=== PATIENT | female | born 1935 | race Caucasian/White ===

== ENCOUNTER 2018-06-28 13:57 | Outpatient (REF) | payer MEDICARE, OTHER, SELFPAY ==
[2018-06-28 16:08] LABS: Bilirubin Negative (Negative); Blood Negative (Negative); Clarity Clear; Glucose Negative (Negative); Ketones Negative (Negative); Leukocyte Esterase Negative (Negative); Nitrite Negative (Negative); Urobilinogen 0.2 EU/dL (Up TO 0.2)
== END 2018-06-28 14:17 ==
LOC: LBN 13:57
PROVIDERS: PCP Family Medicine; Visit Provider Family Medicine
DX: R33.9 Retention of urine, unspecified (principal)
CPT/HCPCS: 81003

== ENCOUNTER 2018-10-09 02:26 | Emergency (ER) | payer MEDICARE, OTHER, SELFPAY ==
[2018-10-09] VITALS (23 sets, daily range): BP systolic 136–190; BP diastolic 65–78; PULSE 59–66; RESP 9–20; TEMP 36.5–36.7; O2SAT 91–98
--- NOTE | 2018-10-09 02:35 | W.ED.GENAD ---
Discharge Plan Disposition Patient Disposition: HOME Condition: Stable Discharge Details Chief Complaint: Chest Pain Clinical Impression: Epigastric pain, Pancreatitis Primary Care Provider: Tiffani Salas ED Provider: Adryan Wilder Home Meds and New Rx's Prescriptions: No Action multivitamin [Daily Vitamin] 1 EACH tablet 1 ea PO DAILY RF: 0 ibuprofen 600 MG tablet 600 mg PO Q6H PRN Qty: 100 RF: 12 Discharge Instructions Instructions: Pancreatitis (ED) Additional Instructions: There was no evidence of a heart attack based on your lab work. You did have an elevation of your lipase which indicated inflammation of the pancreas Your cat scan did not show any concerning findings IF you have severe worsening of pain, high fevers or difficulty breathing return to the emergency department. follow up with your primary care provider as scheduled Medical Decision Making 83 yo female with hx of htn, hld, tricuspid regurgitation, had a stent placed in 2004 per pt after having positive stress test, comes in with complaints of chest aching that started around 1am. Denies radiation of pain, n/v, diarphoresis or pain with exertion. She states her discomfort is all but gone at this time and did not take anything for her pain. She has no calf pain, pain with deep breaths and no hypoxia or tachycardia to suggest PE. No tearing back pain and normal vascular exam so doubt dissection at this time. ECG unchanged, will send troponin. pt's labs show lipase over 900, remains stable. Given this and her pain will image chest/abd/pelvis to evaluate for gallstones and other acute pathology ct shows no acute findings on my read and vrad. She is not requiring any pain meds and declines them, is tolerating PO. I recommended admission for pancreatitis but she declined as she is tolerating PO and her pain is mild. She understands risks including worsening pancreatitis and potential to develop respiratory complications and knows she would need to come back immediately if anything worsens. SHe is willing to stay for a delta troponin to rule out nstemi. She has the capacity to make her own decisions second troponin negative and lipase decreased to the 600's. Tolerating PO and hasn't required any pain meds so feel outpatient management reasonable. She will f/u with her pcp and return if worsening Differential Diagnosis acs, chest wall pain, ptx, pna Imaging Data Radiologic Study: Attestation: I personally reviewed and interpreted this imaging study as follows: Imaging: CT Scan Radiologist's impression: no acute findings Lab Data Lab results reviewed: Yes I reviewed the patient's lab results. ECG Data Attestation: I personally reviewed and interpreted this ECG (s) as follows: Prior ECG tracings: available for review Interpretation: sinus rhythm, rate of 65, pr 192, left axis anterior fascicular block, no acute st t wavfe changes when compared to old ekg HPI General Mode of arrival: ambulatory. Date/Time Provider Initiated Documentation: 10/09/18 02:35. Limitations to Documentation: no limitations. Information obtained by: patient. History of Present Illness 83 year old F presents to the emergency department with the chief complaint of chest pain, described as mild, with intensity rated at 3. Quality is described as aching, and is localized to the chest. Patient reports no radiation. Patient started experiencing this hour(s) (2) and it has been other (improving). No relieving factors improve symptom(s), No exacerbating factors reported . Patient notes no other symptoms.. Patient did receive the following treatments prior to arrival, none Related Data Home Medications Medication Instructions Recorded Confirmed multivitamin [Daily Vitamin] 1 ea PO DAILY 07/31/14 10/09/18 ibuprofen 600 mg PO Q6H PRN #100 tab-cap 04/06/18 10/09/18 Previous Rx's Medication Instructions Recorded ibuprofen 600 mg PO Q6H PRN #100 tab-cap 04/06/18 Allergies Allergy/AdvReac Type Severity Reaction Status Date / Time hydrocortisone Allergy Severe Verified 10/09/18 02:38 metoprolol Allergy Severe Verified 10/09/18 02:38 simvastatin Allergy Intermediate VARIOUS Verified 10/09/18 02:38 REACTIONS atorvastatin Allergy Mild RASH Verified 10/09/18 02:38 doxycycline Allergy Mild SKIN RASH Verified 10/09/18 02:38 clopidogrel Allergy Unknown RASH Verified 10/09/18 02:38 Penicillins Allergy Unknown Verified 10/09/18 02:38 Sulfa (Sulfonamide Allergy Unknown RASH Verified 10/09/18 02:38 Antibiotics) lactose AdvReac Unknown Verified 10/09/18 02:38 Review of Systems Review of Systems All systems reviewed & are unremarkable except as noted in HPI and below Constitutional Denies chills, Denies fever(s) and Denies weakness ENT Denies change in voice Cardiovascular Denies dyspnea Respiratory Denies cough and Denies dyspnea Gastrointestinal Denies abdominal pain, Denies nausea and Denies vomiting Genitourinary Denies dysuria Musculoskeletal Denies joint swelling Neurologic Denies weakness [facility] Medical History Varicose veins of lower extremity (Chronic) Trigeminal neuralgia (Resolved 12/25/17) Tricuspid regurgitation (Chronic 12/21/14) Thyroid nodule (Chronic 08/06/06) Chronic sinusitis, unspecified (Chronic 10/04/15) Refusal of blood transfusions as patient is Buddhist (Acute 12/05/14) Pulmonary hypertension (Chronic 04/20/17) Primary malignant neoplasm (Chronic 08/06/07) 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) Mitral valve insufficiency (Chronic 04/20/17) Knee pain (Chronic 12/27/12) Herpes zoster (Resolved 09/10/13) Gastric motor function disorder (Chronic) Fatty liver (Chronic 12/11/14) Wedge compression fracture of first lumbar vertebra, initial encounter for closed fracture (Chronic 04/06/18) Chronic disease of respiratory system (Chronic) Chest pain (Chronic 08/06/04) Bilateral edema of lower extremity (Chronic 04/14/17) Atrophic vaginitis (Chronic 08/06/01) Abdominal pain (Resolved) Anemia (Resolved) Closed fracture of neck of femur (Resolved) Eczema (Resolved) Electrolyte imbalance (Resolved) History of stress test (Resolved) Polyp of colon, hyperplastic (Resolved) SOB (shortness of breath) (Resolved) Urinary tract infectious disease (Resolved) Surgical History History of intravascular stent placement (Resolved) History of open reduction and internal fixation (ORIF) procedure (Resolved) HIP REPAIR STRESS TEST (02/09/12) Stent placement (~2004) Social History Smoking/Tobacco Use Status: Never manuel/holiness: [employer]ov[employer] special manuel needs: Yes agree to transfusion: No (No blood products) Exam Const General: no acute distress Orientation: alert [facility] Head: normal to inspection Ears: external ears normal General nose exam: external nose normal Mouth: moist mucous membranes Eyes General: appearance normal, both eyes and all related structures Neck Neck: normal visual inspection Resp Effort & Inspection: normal respiratory effort and able to speak in complete sentences Cardio Rate: regular rate Skin General skin exam: no rashes or lesions noted Neuro General: alert and oriented x3 Extrem General: normal to inspection Psych Mental Status: mental status grossly normal
--- NOTE | 2018-10-09 02:52 | ED.GENADUL_ITS ---
Discharge Plan Disposition Patient Disposition: HOME Condition: Stable Discharge Details Chief Complaint: Chest Pain Clinical Impression: Epigastric pain, Pancreatitis Primary Care Provider: Tiffani Salas ED Provider: Adryan Wilder Home Meds and New Rx's Prescriptions: No Action multivitamin [Daily Vitamin] 1 EACH tablet 1 ea PO DAILY RF: 0 ibuprofen 600 MG tablet 600 mg PO Q6H PRN Qty: 100 RF: 12 Discharge Instructions Instructions: Pancreatitis (ED) Additional Instructions: There was no evidence of a heart attack based on your lab work. You did have an elevation of your lipase which indicated inflammation of the pancreas Your cat scan did not show any concerning findings IF you have severe worsening of pain, high fevers or difficulty breathing return to the emergency department. follow up with your primary care provider as scheduled Medical Decision Making 83 yo female with hx of htn, hld, tricuspid regurgitation, had a stent placed in 2004 per pt after having positive stress test, comes in with complaints of chest aching that started around 1am. Denies radiation of pain, n/v, diarphoresis or pain with exertion. She states her discomfort is all but gone at this time and did not take anything for her pain. She has no calf pain, pain with deep breaths and no hypoxia or tachycardia to suggest PE. No tearing back pain and normal vascular exam so doubt dissection at this time. ECG unchanged, will send troponin. pt's labs show lipase over 900, remains stable. Given this and her pain will image chest/abd/pelvis to evaluate for gallstones and other acute pathology ct shows no acute findings on my read and vrad. She is not requiring any pain meds and declines them, is tolerating PO. I recommended admission for pancreatitis but she declined as she is tolerating PO and her pain is mild. She understands risks including worsening pancreatitis and potential to develop respiratory complications and knows she would need to come back immediately if anything worsens. SHe is willing to stay for a delta troponin to rule out nstemi. She has the capacity to make her own decisions second troponin negative and lipase decreased to the 600's. Tolerating PO and hasn't required any pain meds so feel outpatient management reasonable. She will f/u with her pcp and return if worsening Differential Diagnosis acs, chest wall pain, ptx, pna Imaging Data Radiologic Study: Attestation: I personally reviewed and interpreted this imaging study as follows: Imaging: CT Scan Radiologist's impression: no acute findings Lab Data Lab results reviewed: Yes I reviewed the patient's lab results. ECG Data Attestation: I personally reviewed and interpreted this ECG (s) as follows: Prior ECG tracings: available for review Interpretation: sinus rhythm, rate of 65, pr 192, left axis anterior fascicular block, no acute st t wavfe changes when compared to old ekg HPI General Mode of arrival: ambulatory . Date/Time Provider Initiated Documentation: 10/09/18 02:35 . Limitations to Documentation: no limitations . Information obtained by: patient . History of Present Illness 83 year old F presents to the emergency department with the chief complaint of chest pain, described as mild, with intensity rated at 3. Quality is described as aching, and is localized to the chest. Patient reports no radiation. Patient started experiencing this hour(s) (2) and it has been other (improving). No relieving factors improve symptom(s), No exacerbating factors reported . Patient notes no other symptoms.. Patient did receive the following treatments prior to arrival, none Related Data Home Medications Medication Instructions Recorded Confirmed multivitamin [Daily Vitamin] 1 ea PO DAILY 07/31/14 10/09/18 ibuprofen 600 mg PO Q6H PRN #100 tab-cap 04/06/18 10/09/18 Previous Rx's Medication Instructions Recorded ibuprofen 600 mg PO Q6H PRN #100 tab-cap 04/06/18 Allergies Allergy/AdvReac Type Severity Reaction Status Date / Time hydrocortisone Allergy Severe Verified 10/09/18 02:38 metoprolol Allergy Severe Verified 10/09/18 02:38 simvastatin Allergy Intermediate VARIOUS Verified 10/09/18 02:38 REACTIONS atorvastatin Allergy Mild RASH Verified 10/09/18 02:38 doxycycline Allergy Mild SKIN RASH Verified 10/09/18 02:38 clopidogrel Allergy Unknown RASH Verified 10/09/18 02:38 Penicillins Allergy Unknown Verified 10/09/18 02:38 Sulfa (Sulfonamide Allergy Unknown RASH Verified 10/09/18 02:38 Antibiotics) lactose AdvReac Unknown Verified 10/09/18 02:38 Review of Systems Review of Systems All systems reviewed & are unremarkable except as noted in HPI and below Constitutional Denies chills, Denies fever(s) and Denies weakness ENT Denies change in voice Cardiovascular Denies dyspnea Respiratory Denies cough and Denies dyspnea Gastrointestinal Denies abdominal pain, Denies nausea and Denies vomiting Genitourinary Denies dysuria Musculoskeletal Denies joint swelling Neurologic Denies weakness [facility] Medical History Varicose veins of lower extremity (Chronic) Trigeminal neuralgia (Resolved 12/25/17) Tricuspid regurgitation (Chronic 12/21/14) Thyroid nodule (Chronic 08/06/06) Chronic sinusitis, unspecified (Chronic 10/04/15) Refusal of blood transfusions as patient is [employer] (Acute 12/05/14) Pulmonary hypertension (Chronic 04/20/17) Primary malignant neoplasm (Chronic 08/06/07) 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) Mitral valve insufficiency (Chronic 04/20/17) Knee pain (Chronic 12/27/12) Herpes zoster (Resolved 09/10/13) Gastric motor function disorder (Chronic) Fatty liver (Chronic 12/11/14) Wedge compression fracture of first lumbar vertebra, initial encounter for closed fracture (Chronic 04/06/18) Chronic disease of respiratory system (Chronic) Chest pain (Chronic 08/06/04) Bilateral edema of lower extremity (Chronic 04/14/17) Atrophic vaginitis (Chronic 08/06/01) Abdominal pain (Resolved) Anemia (Resolved) Closed fracture of neck of femur (Resolved) Eczema (Resolved) Electrolyte imbalance (Resolved) History of stress test (Resolved) Polyp of colon, hyperplastic (Resolved) SOB (shortness of breath) (Resolved) Urinary tract infectious disease (Resolved) Surgical History History of intravascular stent placement (Resolved) History of open reduction and internal fixation (ORIF) procedure (Resolved) HIP REPAIR STRESS TEST (02/09/12) Stent placement (~2004) Social History Smoking/Tobacco Use Status: Never manuel/baptism: Johovah Witness special manuel needs: Yes agree to transfusion: No (No blood products) Exam Const General: no acute distress Orientation: alert [facility] Head: normal to inspection Ears: external ears normal General nose exam: external nose normal Mouth: moist mucous membranes Eyes General: appearance normal, both eyes and all related structures Neck Neck: normal visual inspection Resp Effort & Inspection: normal respiratory effort and able to speak in complete sentences Cardio Rate: regular rate Skin General skin exam: no rashes or lesions noted Neuro General: alert and oriented x3 Extrem General: normal to inspection Psych Mental Status: mental status grossly normal
[2018-10-09 02:55] LABS: Absolute Basophil Count 0.03 k/cumm (0.0-0.2); Absolute Lymphocyte Count 3.44 k/cumm (1.2-3.4); Absolute Neutrophil Count 3.22 k/cumm (1.2-6.7); Basophils % 0.4; Eosinophils % 2.6; HCT 43.7 % (36.0-46.0); HGB 14.4 g/dL (12.0-15.5); Lymphocytes % 44.7; Mean Corpuscular Hemoglobin 28.8 pg (27.0-33.0); Mean Corpuscular Volume 87.4 fL (80-95); Mean Platelet Volume 10.3 fL (8.0-11.0); Monocytes % 10.4; Neutrophils % 41.9; Platelet Count 173 x1000/uL (130-400); RBC Distribution Width 13.2 % (11.7-14.6); White Blood Cell Count 7.69 k/cumm (4.4-10.8)
[2018-10-09] MEDS: Aspirin 81 MG CHEW 324 MG CH (03:01)
[2018-10-09 03:18] LABS: ALT 19 U/L (12-78); AST 22 U/L (15-37); Albumin 3.6 g/dL (3.4-5.0); Alkaline Phosphatase 55 U/L (46-116); Anion Gap 9.2 mmol/L (3-11); BUN 21 mg/dL (7-18); Bilirubin, Direct 0.09 mg/dL (0.00-0.20); Bilirubin, Total 0.3 mg/dL (0.2-1.0); CO2 29.8 mmol/L (21.0-32.0); CREATININE 0.98 mg/dL (0.55-1.02); Calcium 9.3 mg/dL (8.5-10.1); Chloride 103 mmol/L (98-107); Estimated GFR 54.47 (mL/min/1.73m2); Glucose 107 mg/dL (70-100); Lipase 976 U/L (73-393); Magnesium 1.8 mg/dL (1.8-2.4); NT-proBNP 200 pg/mL; Potassium 3.9 mmol/L (3.5-5.1); Sodium 142 mmol/L (136-145); Total Protein 7.7 g/dL (6.4-8.2)
[2018-10-09 03:20] LABS: Troponin I < 0.02 ng/mL (0.00-0.06)
[2018-10-09 03:22] LABS: PTT Activated 22.8 sec (21.0-31.4); Prothrombin Time 10.2 sec (9.3-11.0)
[2018-10-09] MEDS: Omnipaque 350 MG/ML 100 ML BTL IJ (03:59)
--- NOTE | 2018-10-09 04:11 | DI.CT_ITS ---
SYMPTOM/DIAGNOSIS: CHEST AND ABD PAIN PE CHEST CT: CT angiography was performed with multi slice acquisition and multi planar and 3D reconstruction. The pulmonary arteries and aorta are well opacified with IV contrast. No pulmonary emboli or aortic dissection is seen. There is mural thrombus and calcification of the descending thoracic aorta. Mitral anular calcification is also seen. There are coronary artery calcifications as well as left ventricular and bi-atrial enlargement. No pleural or pericardial effusions are seen. The lungs show mild respiratory motion. No infiltrate or adenopathy is seen. IMPRESSION: No acute abnormality. CTA OF ABDOMEN AND PELVIS: CT angiography was performed with multi slice acquisition and multi planar and 3D reconstruction. The exam is limited due to phase of contrast enhancement. Calcification and mild mural thrombus is seen in the abdominal aorta. There is some narrowing of the luminal diameter. No aneurysm is seen. There is mild calcification of the iliac arteries. No branch vessel occlusion or stenosis is seen. The liver, spleen, pancreas, adrenals, kidneys and urinary bladder are unremarkable. The uterus and ovaries are also unremarkable. There is a moderate quantity of stool. There is no bowel dilatation or inflammatory change. Degenerative changes are seen in the spine. There is a mild compression fracture of T 12 which is unchanged when compared with the CT of the lumbar spine dated 04/05/18. Facet degenerative changes are also present. IMPRESSION: Atherosclerotic changes of the abdominal aorta. No evidence of aneurysm, dissection or branch vessel occlusion.
[2018-10-09 04:19] LABS: Triglyceride 136 mg/dL (30-150)
[2018-10-09 04:28] LABS: ETHANOL BLOOD < 3.0 mg/dL (<3)
--- NOTE | 2018-10-09 04:47 | DI.VRAD_ITS ---
EXAM: CT Angiography Chest With Contrast EXAM DATE/TIME: 10/09/2018 3:30 AM CLINICAL HISTORY: 83 years old, female; Pain; Chest pain; Type not specified; Abdominal pain; Generalized; Prior surgery; Surgery date: 6+ months; Surgery type: Heart stent TECHNIQUE: Axial computed tomographic angiography images of the chest with intravenous contrast using CT angiography protocol. All CT scans at this facility use at least one of these dose optimization techniques: automated exposure control; mA and/or kV adjustment per patient size (includes targeted exams where dose is matched to clinical indication); or iterative reconstruction. Coronal and sagittal reformatted images were created and reviewed. MIP reconstructed images were created and reviewed. CONTRAST: 65 ml of [id number] administered intravenously. COMPARISON: CT CHEST WITH CONTRAST 12/11/2014 8:35 AM FINDINGS: Pulmonary arteries: Normal. No pulmonary emboli. Aorta: Normal. No aortic aneurysm. No aortic dissection. Lungs: Normal. No consolidation. No masses. Pleural space: Normal. No pneumothorax. No pleural effusion. Heart: Normal. No cardiomegaly. No pericardial effusion. Lymph nodes: Unremarkable. No enlarged lymph nodes. Bones/joints: Degenerative change of the spine. Soft tissues: Unremarkable. IMPRESSION: No acute finding. EXAM: CT Angiography Abdomen and Pelvis With Contrast EXAM DATE/TIME: 10/09/2018 3:30 AM CLINICAL HISTORY: 83 years old, female; Pain; Chest pain; Type not specified; Abdominal pain; Generalized; Prior surgery; Surgery date: 6+ months; Surgery type: Heart stent TECHNIQUE: Axial computed tomographic angiography images of the abdomen and pelvis with intravenous contrast material, including non-contrast images if performed. MIP and/or 3D reconstructed images were created and reviewed. All CT scans at this facility use at least one of these dose optimization techniques: automated exposure control; mA and/or kV adjustment per patient size (includes targeted exams where dose is matched to clinical indication); or iterative reconstruction. Coronal and sagittal reformatted images were created and reviewed. COMPARISON: CT CHEST WITH CONTRAST 12/11/2014 8:35 AM FINDINGS: VASCULATURE: Aorta: No aortic aneurysm. No aortic dissection. Celiac trunk and mesenteric arteries: No occlusion or significant stenosis. Renal arteries: No occlusion or significant stenosis. Right iliac arteries: No occlusion or significant stenosis. Right femoral/popliteal arteries: No occlusion or significant stenosis of the imaged proximal femoral artery. The popliteal artery was not imaged. Left iliac arteries: No occlusion or significant stenosis. Left femoral/popliteal arteries: No occlusion or significant stenosis of the imaged proximal femoral artery. The popliteal artery was not imaged. ABDOMEN: Liver: No mass. Gallbladder and bile ducts: Unremarkable. No calcified stones. No ductal dilation. Pancreas: Unremarkable. No mass. No ductal dilation. Spleen: Unremarkable. No splenomegaly. Adrenals: Unremarkable. No mass. Kidneys and ureters: Unremarkable. No solid mass. No hydronephrosis. Stomach and bowel: Colonic diverticula. Appendix: No evidence of appendicitis. PELVIS: Bladder: Unremarkable. No mass. Reproductive: Unremarkable as visualized. ABDOMEN and PELVIS: Intraperitoneal space: Unremarkable. No free air. No significant fluid collection. Bones/joints: Degenerative change of the spine. Soft tissues: Unremarkable. Lymph nodes: Unremarkable. No enlarged lymph nodes. IMPRESSION: No acute finding. Dictated and Authenticated by: Adryan Castle MD. Ordering:GADIEL Cornelius MD
[2018-10-09 05:12] LABS: Lipase 629 U/L (73-393)
[2018-10-09 05:20] LABS: Troponin I < 0.02 ng/mL (0.00-0.06)
== END 2018-10-09 05:45 | disposition home or self-care (01) ==
PROVIDERS: Emergency Provider Emergency Medicine; PCP Family Medicine
DX: R10.13 Epigastric pain (principal); K85.90 Acute pancreatitis without necrosis or infection, unspecified; I10 Essential (primary) hypertension; I25.10 Atherosclerotic heart disease of native coronary artery without angina pectoris; Z95.5 Presence of coronary angioplasty implant and graft
CPT/HCPCS: 36415; 71275; 74177; 80053; 80076; 83690; 93005; 99285; 80320; 83735; 83880; 84478; 84484; 85025; 85610; 85730; 93010; 99284; J3490

== ENCOUNTER 2018-11-12 00:11 | Outpatient (CLI) | payer MEDICARE, OTHER, SELFPAY ==
[2018-11-12] MEDS: Inhaler, Assist Device 1 EACH MC (08:53)
[2018-11-12] MEDS: Albuterol HFA 18 GM 200 PUFF INH IH (08:54)
--- NOTE | 2018-11-12 10:10 | MERGE_ITS ---
*[facility]* *[facility]* [address] [place] [address] Date of study: 11/12/2018 Transthoracic Echocardiography M-mode, complete 2D, complete spectral Doppler, and color Doppler *STUDY CONCLUSIONS* Summary: 1. Left ventricle: The cavity size was normal. Wall thickness was increased in a pattern of mild LVH. Systolic function was normal. The estimated ejection fraction was 60-65%. Wall motion was normal; there were no regional wall motion abnormalities. Doppler parameters are consistent with high ventricular filling pressure. 2. Right ventricle: The cavity size was dilated. Systolic function was normal. 3. Left atrium: The atrium was mildly dilated. 4. Mitral valve: Moderately calcified annulus. Mildly thickened leaflets. There was mild to moderate regurgitation. 5. Aortic valve: Trileaflet; mildly thickened, mildly calcified leaflets. Valve mobility was restricted. Transvalvular velocity was increased. There was mild stenosis. Peak velocity (S): 2m/sec. Valve area (VTI): 1.5cm^2. 6. Tricuspid valve: There was moderate-severe regurgitation. 7. Pulmonary arteries: Pulmonary systolic pressure was increased, in the range of 40mm Hg to 45mm Hg. 8. Inferior vena cava: The vessel was patent and normal in size. The respirophasic diameter changes were in the normal range (greater than or equal to 50%), consistent with normal central venous pressure. *PATIENT PRESENTATION* Height: 162.6cm ((64in) ) S/D Pressure: 127 / 77 Weight: 72.6kg ((159.7lb) ) BSA: 1.83m^2 Test start time: 10:30 AM. Test stop time: 11:45 AM. ORDERING Tiffain Salas REFERRING Tiffani Salas PERFORMING Unknown PERFORMING [facility] [employer] RT Garcia (R)(HOME), [facility] *PROCEDURE DATA* Procedure information: The patient was identified by two identifiers. This study was interpreted by [facility]. Pertinent images and digital data are archived for permanent storage and are available for subsequent review. Comparison was made to the study of 04/20/2017. Study status: Routine. Transthoracic echocardiography. M-mode, complete 2D, complete spectral Doppler, and color Doppler. A Transthoracic Echocardiogram was performed. Scanning was performed from the parasternal, apical, subcostal, and suprasternal notch acoustic windows. Images were obtained using an [id number] cardiac ultrasound machine. Image quality was adequate. Study completion: The patient tolerated the procedure well. There were no complications. History: PMH: Shortness of breath. Pulmonary HTN. I 27.2, r06.02. *CARDIAC ANATOMY* Left ventricle: The cavity size was normal. Wall thickness was increased in a pattern of mild LVH. Systolic function was normal. The estimated ejection fraction was 60-65%. Wall motion was normal; there were no regional wall motion abnormalities. Findings consistent with diastolic dysfunction. Doppler parameters are consistent with high ventricular filling pressure. Aortic valve: Trileaflet; mildly thickened, mildly calcified leaflets. Valve mobility was restricted. Doppler: Transvalvular velocity was increased. There was mild stenosis. There was trivial regurgitation. VTI ratio of LVOT to aortic valve: 0.55. Valve area (VTI): 1.5cm^2. Indexed valve area (VTI): 0.8cm^2/m^2. Peak velocity ratio of LVOT to aortic valve: 0.52. Valve area (Vmax): 1.4cm^2. Indexed valve area (Vmax): 0.8cm^2/m^2. Mean velocity ratio of LVOT to aortic valve: 0.53. Valve area (Vmean): 1.4cm^2. Indexed valve area (Vmean): 0.8cm^2/m^2. Mean gradient (S): 8.7mm Hg. Peak gradient (S): 16.6mm Hg. Aorta: Aortic root: The aortic root was normal in size. Ascending aorta: The ascending aorta was normal in size. Mitral valve: Moderately calcified annulus. Mildly thickened leaflets. Mobility was not restricted. Doppler: Transvalvular velocity was within the normal range. There was no evidence for stenosis. There was mild to moderate regurgitation. Valve area by pressure half-time: 2.9cm^2. Indexed valve area by pressure half-time: 1.6cm^2/m^2. Peak gradient (D): 4mm Hg. Left atrium: The atrium was mildly dilated. Right ventricle: The cavity size was dilated. Systolic function was normal. Pulmonic valve: The pulmonary valve appears to be grossly normal. Doppler: Transvalvular velocity was within the normal range. There was no evidence for stenosis. There was trivial regurgitation. Tricuspid valve: Structurally normal valve. Doppler: Transvalvular velocity was within the normal range. There was no evidence for stenosis. There was moderate-severe regurgitation. Pulmonary artery: The main pulmonary artery was normal-sized. Pulmonary systolic pressure was increased, in the range of 40mm Hg to 45mm Hg. Right atrium: The atrium was dilated. Pericardium: There was no pericardial effusion. Systemic veins: Inferior vena cava: Well visualized. The vessel was patent and normal in size. The respirophasic diameter changes were in the normal range (greater than or equal to 50%), consistent with normal central venous pressure. Baseline ECG: Sinus bradycardia. Measurements Left ventricle Value 04/20/2017 Reference LV ID, ED, PLAX 4.8 cm 4.9 3.5 - 6.0 LV ID, ES, PLAX 3.0 cm 3.3 2.1 - 4.0 LV PW thickness, ED, PLAX 1.0 cm 0.9 LV end-diastolic volume, 68 ml 42 1-p A2C LV ejection fraction, 1-p 66 % 64 A2C LV end-diastolic volume, 47 ml 70 1-p A4C LV ejection fraction, 1-p 64 % 61 A4C LV e', lateral 0.042 m/sec LV E/e', lateral 24 LV e', medial 0.046 m/sec LV E/e', medial 22 LV e', average 0.044 m/sec LV E/e', average 23 Ventricular septum Value 04/20/2017 Reference IVS thickness, ED, PLAX 1.0 cm 0.8 LVOT Value 04/20/2017 Reference LVOT ID, A-P 1.8 cm 1.8 LVOT area 2.6 cm^2 2.6 LVOT peak velocity, S 1.07 m/sec 1.12 LVOT mean velocity, S 0.74 m/sec LVOT VTI, S 27.1 cm 29.6 LVOT peak gradient, S 4.6 mm Hg 5 LVOT mean gradient, S 2.5 mm Hg 2.4 Stroke volume (SV), LVOT 71 ml DP Stroke index (SV/bsa), 39 ml/m^2 LVOT DP Aortic valve Value 04/20/2017 Reference Aortic valve peak 2 m/sec 1.7 velocity, S Aortic valve mean 1.39 m/sec velocity, S Aortic valve VTI, S 49.0 cm Aortic mean gradient, S 8.7 mm Hg 7 Aortic peak gradient, S 16.6 mm Hg 11.6 VTI ratio, LVOT/AV 0.55 0.65 Aortic valve area, VTI 1.5 cm^2 1.7 Velocity ratio, peak, 0.52 0.66 LVOT/AV Aortic valve area, peak 1.4 cm^2 1.7 velocity Velocity ratio, mean, 0.53 LVOT/AV Aortic valve area, mean 1.4 cm^2 velocity Aortic valve area/bsa, 0.8 cm^2/m^2 mean velocity Aorta Value 04/20/2017 Reference Aortic root ID, ED 2.4 cm 2.5 Ascending aorta ID, A-P, S 3.0 cm 2.9 Left atrium Value 04/20/2017 Reference LA ID, A-P, ES 3.6 cm LA ID/bsa, A-P 2.0 cm/m^2 <=2.2 LA area, ES, A4C (H) 27.2 cm^2 20.7 8.8 - 23.4 LA area, ES, A2C 19 cm^2 LA volume/bsa, ES, 1-p A4C 58 ml/m^2 38 LA volume, ES, 2-p 66 ml LA volume/bsa, ES, 2-p 36 ml/m^2 LA/aortic root ratio 1.5 1.47 Mitral valve Value 04/20/2017 Reference Mitral E-wave peak 1 m/sec 1.18 velocity Mitral A-wave peak 1.42 m/sec 1.4 velocity Mitral deceleration time (H) 260 ms 150 - 230 Mitral pressure half-time 75 ms 77 Mitral peak gradient, D 4 mm Hg 5.6 Mitral E/A ratio, peak 0.7 0.84 Mitral valve area, PHT, DP 2.9 cm^2 2.9 Mitral peak LV-LA 110.1 mm Hg 137.7 gradient, S Mitral maximal regurg 5.25 m/sec 5.87 velocity, PISA Mitral regurg VTI, PISA 208.1 cm Pulmonary veins Value 04/20/2017 Reference Pulmonary vein peak 0.52 m/sec 0.53 velocity, S Pulmonary vein peak 0.36 m/sec 0.25 velocity, D Pulmonary vein velocity 1.45 2.12 ratio, peak, S/D Pulmonary vein A-wave 0.36 m/sec reversal peak velocity Pulmonary vein A-wave 135 ms reversal duration Tricuspid valve Value 04/20/2017 Reference Tricuspid regurg peak 3.1 m/sec 3.2 velocity Tricuspid peak RV-RA 39.2 mm Hg 40.4 gradient Right atrium Value 04/20/2017 Reference RA area, ES, A4C (H) 20.6 cm^2 16 8.3 - 19.5 Legend: (L) and (H) mary values outside specified reference range. I have personally reviewed the images and have reviewed and edited the reported findings. Electronically signed by Helga Green 11/13/2018 09:48
--- NOTE | 2018-11-12 16:04 | PFT_ITS ---
DATE OF SERVICE: 11/12/18 REQUESTING PROVIDER: Tiffani Salas M.D. Spirometry shows no evidence of obstructive airways disease. No bronchodilator response. Lung volumes show mild restriction. Diffusion capacity mildly reduced, which is normal when corrected to alveolar volume. Airways resistance normal. IMPRESSION: Mild restrictive lung disease associated with mild diffusion defect. Clinical correlation recommended.
== END 2018-11-12 00:31 ==
PROVIDERS: PCP Family Medicine; Visit Provider Family Medicine
DX: R06.02 Shortness of breath (principal); I27.20 Pulmonary hypertension, unspecified; I08.3 Combined rheumatic disorders of mitral, aortic and tricuspid valves; I25.10 Atherosclerotic heart disease of native coronary artery without angina pectoris; Z95.5 Presence of coronary angioplasty implant and graft
CPT/HCPCS: 93306; 94060; 94150; 94726; 94729

== ENCOUNTER 2019-04-07 15:51 | Outpatient (CLI) | payer MEDICARE, OTHER, SELFPAY ==
--- NOTE | 2019-04-07 15:45 | DI.RAD_ITS ---
SYMPTOM/DIAGNOSIS: RT KNEE PAIN, M25.561 RIGHT KNEE: Three views. Comparison 03/04/11 No acute fracture or dislocation is seen. The articular surfaces are well maintained. There is a small enthesophyte seen in the superior aspect of the patella. Vascular calcifications are seen in the soft tissues. IMPRESSION: No acute abnormality.
== END 2019-04-07 16:11 ==
PROVIDERS: PCP Family Medicine; Visit Provider Family Medicine
DX: M25.561 Pain in right knee (principal)
CPT/HCPCS: 73562

== ENCOUNTER → 2019-05-25 09:46 | Outpatient (BNVA) | payer MEDICARE, OTHER, SELFPAY | PROVIDERS: PCP Family Medicine; Referring Provider Family Medicine; Visit Provider Student in an Organized Health Care Education/Training Program | DX: I25.10 Atherosclerotic heart disease of native coronary artery without angina pectoris (principal); Z95.5 Presence of coronary angioplasty implant and graft; I38 Endocarditis, valve unspecified; I50.30 Unspecified diastolic (congestive) heart failure | CPT/HCPCS: 99214 ==

== ENCOUNTER 2020-03-09 21:58 | Emergency (ER) | payer MEDICARE, OTHER, SELFPAY ==
[2020-03-09 22:02] VITALS: BP 155/99; PULSE 61; RESP 24; TEMP 36.3; O2SAT 96
[2020-03-09] MEDS: Acetaminophen 500 MG TAB 1000 MG PO (22:11)
--- NOTE | 2020-03-09 22:15 | ED.GENADUL_ITS ---
Discharge Plan Disposition Patient Disposition: HOME Condition: Stable Discharge Details Chief Complaint: Orthopedic Clinical Impression: Fall, Blunt head trauma, Contusion of forearm, right, Fracture of triquetral bone of right wrist, Contusion of hand, right Primary Care Provider: Tiffani Salas ED Provider: Adryan Wilder Home Meds and New Rx's Prescriptions: Continued coenzyme Q10 100 mg capsule 200 mg PO DAILY RF: 0 Peak Chelation & Resveratrol 1 tab PO TID RF: 0 Telo Cell Anti Aging Science 1 tab PO DAILY RF: 0 multivitamin [Daily Vitamin] 1 EACH tablet 1 ea PO DAILY RF: 0 ibuprofen 600 MG tablet 600 mg PO Q6H PRN Qty: 100 RF: 12 Discharge Instructions Instructions: Wrist Fracture in Adults (ED) Additional Instructions: you have a small broken bone in the wrist call orthopedics Thursday for an appointment return to the emergency department for severe worsening pain or numbness Referrals: Vlad Burgos MD [ [facility] STAFF PHYSICIAN] - Medical Decision Making 84 yo female who states she was trying to get out of the rain and slipped from standing height and landed on her right wrist and hit her head, no loc or vomit. Has 1cm supercicial abrasion to the superior head, no neck tenderness. HAs pain in right wrist with swelling, no tenderness on fingers, mild mid forearm pain, no pain in elbow or shoulders and no chest pain, abd pain, leg pain. Denies any preceding symptoms to suggest presyncope/sncope states purely mechanical due to it being slipper from rain. Given her age and head trauma will image head and c spine and also xray right forearm, wrist and hand. head, forearm negative, hand and wrist show minimaly displaced triquetrum fracture, still no deficits on sensation and pulses and movement of fingers. Placed in wrist splint and will have her f/u with orthopedics. She declined pain meds for home and just wants to take ibuprofen and tylenol. She also declined discussing at home services with care managers, states she feels comfortable going home and can manage on her own. She is caox4 and has capacity to make her own decisions Differential Diagnosis Differential Diagnosis: fracture, dislocation, tbi Imaging Data Radiologic Study: Attestation: I personally reviewed and interpreted this imaging study as follows: Imaging: X-Ray Radiologist's impression: Exam: XR Right Forearm Exam date and time: 03/09/2020 10:35 PM Age: 84 years old Clinical indication: Injury or trauma; Fall; Initial encounter; Blunt trauma (contusions or hematomas; Arm, lower; Right; Injury date: 03/09/20 TECHNIQUE: Imaging protocol: XR Right forearm. Views: 2 views. COMPARISON: No relevant prior studies available. FINDINGS: Bones/joints: Osteopenia. Proximal and distal radial ulnar alignment is normal. Elbow joint alignment is normal. No forearm fractures. No blastic or lytic lesions. No elbow joint effusion. No periostitis or osteolysis. Soft tissues: Mild dorsal soft tissue swelling at the wrist. No radiopaque foreign bodies are identified. Other findings: Carpal relationships are normal. No articular erosions. IMPRESSION: 1. No forearm fractures are identified. 2. Osteopenia. 3. Mild soft tissue swelling at the wrist. Radiologic Study #2: Attestation: I personally reviewed and interpreted this imaging study as follows: Imaging: X-Ray Radiologist's impression: PROCEDURE INFORMATION: Exam: XR Right Hand Exam date and time: 03/09/2020 10:31 PM Age: 84 years old Clinical indication: Injury or trauma; Fall; Initial encounter; Blunt trauma (contusions or hematomas; Hand; Right; Injury date: 03/09/20 TECHNIQUE: Imaging protocol: XR Right hand. Views: 3 or more views. COMPARISON: CR RIGHT HAND COMPLETE 03/03/2017 3:49 PM FINDINGS: Bones/joints: Osteopenia. Acute fracture of the dorsal margin of the triquetrum noted demonstrating about 1 mm displacement of the dorsal cortical fragment. No other fractures. Distal radioulnar alignment is normal. No blastic or lytic lesions. No periostitis or osteolysis. There is evidence of moderate erosive osteoarthritis involving the distal phalangeal joints of the fingers and to a lesser degree the PIP joints. Soft tissues: Mild-moderate dorsal soft tissue swelling at the wrist. No radi opaque foreign bodies. Other findings: Carpal relationships are normal. IMPRESSION: 1. Acute minimally displaced fracture of the dorsal margin of the triquetrum. 2. Osteopenia. 3. Evidence of chronic erosive osteoarthritis. Radiologic Study #3: Attestation: I personally reviewed and interpreted this imaging study as follows: Imaging: X-Ray Radiologist's impression: PROCEDURE INFORMATION: Exam: XR Right Wrist Exam date and time: 03/09/2020 10:30 PM Age: 84 years old Clinical indication: Injury or trauma; Fall; Initial encounter; Blunt trauma (contusions or hematomas; Wrist; Right; Injury date: 03/09/20 TECHNIQUE: Imaging protocol: XR Right wrist. Views: 3 or more views. COMPARISON: CR RIGHT HAND COMPLETE 03/03/2017 3:49 PM FINDINGS: Bones/joints: Cortical discontinuity in the dorsal margin of the triquetrum on the lateral view which is new from 03/03/2017 suspicious for nondisplaced dorsal triquetral fracture. Distal radioulnar alignment is normal. No blastic or lytic lesions. No periostitis or osteolysis. Osteopenia. Soft tissues: No gross erosive changes. Dorsal soft tissue swelling at the wrist. No radiopaque foreign bodies. Other findings: Carpal relationships are normal. IMPRESSION: 1. Suspected nondisplaced fracture of the dorsal margin of the triquetrum. 2. Osteopenia. 3. Dorsal soft tissue swelling. Radiologic Study #4: Attestation: I personally reviewed and interpreted this imaging study as follows: Imaging: CT Scan Radiologist's impression: PROCEDURE INFORMATION: Exam: CT Head Without Contrast Exam date and time: 03/09/2020 10:06 PM Age: 84 years old Clinical indication: Injury or trauma; Fall; Initial encounter; Blunt trauma (contusions or hematomas); Consciousness not specified; Injury date: 03/09/20 TECHNIQUE: Imaging protocol: Computed tomography of the head without contrast. Radiation optimization: All CT scans at this facility use at least one of these dose optimization techniques: automated exposure control; mA and/or kV adjustment per patient size (includes targeted exams where dose is matched to clinical indication); or iterative reconstruction. COMPARISON: CT HEAD WITHOUT CONTRAST 12/25/2017 8:58 AM FINDINGS: Brain: Minor cerebral atrophy. No intracranial hemorrhage. No large territory acute CVA. No cerebral edema. Brainstem and cerebellum are unremarkable. Ventricles: Normal. No ventriculomegaly. Bones/joints: Unremarkable. No acute fracture. Sinuses: Visualized sinuses are unremarkable. No fluid levels. Mastoid air cells: Visualized mastoid air cells are well aerated. Soft tissues: Right forehead scalp laceration. No foreign body. IMPRESSION: 1. Forehead scalp laceration. No foreign body. 2. No skull fracture. 3. No intracranial hemorrhage PROCEDURE INFORMATION: Exam: CT Cervical Spine Without Contrast Exam date and time: 03/09/2020 10:06 PM Age: 84 years old Clinical indication: Injury or trauma; Fall; Initial encounter; Blunt trauma (contusions or hematomas); Consciousness not specified; Injury date: 03/09/20 TECHNIQUE: Imaging protocol: Computed tomography images of the cervical spine without contrast. Radiation optimization: All CT scans at this facility use at least one of these dose optimization techniques: automated exposure control; mA and/or kV adjustment per patient size (includes targeted exams where dose is matched to clinical indication); or iterative reconstruction. COMPARISON: CT HEAD WITHOUT CONTRAST 12/25/2017 8:58 AM FINDINGS: Vertebrae: No acute fracture. Normal alignment. Severe degenerative disc disease at C5-C6. Moderate degenerative disc disease at C3-C4. Multilevel degenerative facet and uncovertebral joint disease of moderate to severe nature. Discs/Spinal canal/Neural foramina: No significant disc protrusion. No severe spinal canal stenosis. No significant neural foraminal narrowing. Soft tissues: Unremarkable. Lungs: Lung apices are normal. Vasculature: Bilateral carotid artery atherosclerotic calcification. IMPRESSION: 1. Degenerative cervical spine changes. 2. No fracture or dislocation HPI General Mode of arrival: ambulatory . Date/Time Provider Initiated Documentation: 03/09/20 22:03 . Limitations to Documentation: no limitations . Information obtained by: patient . History of Present Illness 84 year old F presents to the emergency department with the chief complaint of right wrist pain, described as moderate, Quality is described as aching, and it has been constant. Patient did receive the following treatments prior to arrival, none Related Data Home Medications Medication Instructions Recorded Confirmed multivitamin [Daily Vitamin] 1 ea PO DAILY 07/31/14 03/09/20 ibuprofen 600 mg PO Q6H PRN #100 tab-cap 04/06/18 03/09/20 coenzyme Q10 100 mg capsule 200 mg PO DAILY cap 11/02/18 03/09/20 Peak Chelation & Resveratrol 1 tab PO TID 05/25/19 03/09/20 Telo Cell Anti Aging Science 1 tab PO DAILY 05/25/19 03/09/20 Previous Rx's Medication Instructions Recorded ibuprofen 600 mg PO Q6H PRN #100 tab-cap 04/06/18 Allergies Allergy/AdvReac Type Severity Reaction Status Date / Time hydrocortisone Allergy Severe Verified 03/09/20 22:06 metoprolol Allergy Severe Verified 03/09/20 22:06 simvastatin Allergy Intermediate VARIOUS Verified 03/09/20 22:06 REACTIONS atorvastatin Allergy Mild RASH Verified 03/09/20 22:06 doxycycline Allergy Mild SKIN RASH Verified 03/09/20 22:06 clopidogrel Allergy Unknown RASH Verified 03/09/20 22:06 Penicillins Allergy Unknown Verified 03/09/20 22:06 Sulfa (Sulfonamide Allergy Unknown RASH Verified 03/09/20 22:06 Antibiotics) lactose AdvReac Unknown Verified 03/09/20 22:06 levofloxacin AdvReac aching Verified 03/09/20 22:06 General Stated Complaint: Orthopedic KAE: 3 Review of Systems All systems reviewed & are unremarkable except as noted in HPI and below Constitutional Constitutional: Denies chills, Denies fever(s) and Denies weakness Cardiovascular Cardiovascular: Denies chest pain and Denies dyspnea Respiratory Respiratory: Denies cough and Denies dyspnea Gastrointestinal Gastrointestinal: Denies abdominal pain, Denies nausea and Denies vomiting Musculoskeletal Musculoskeletal: Denies joint swelling Neurologic Neurologic: Denies weakness [facility] Surgical History (Updated 04/07/19 @ 14:57 by Tiffani Salas MD, DC) HIP REPAIR RIGHT HIP;ORIF History of intravascular stent placement (Resolved) 09/07/04 LAD History of intravascular stent placement (Inactive) History of open reduction and internal fixation (ORIF) procedure (Resolved) History of open reduction and internal fixation (ORIF) procedure (Inactive) Stent placement (~2004) LAD STRESS TEST (02/09/12) NV Social History Smoking/Tobacco Use Status: Never Second Hand Exposure: Yes Alcohol Intake: current Alcohol Intake frequency: holidays/special occasions only Drug use: Never Substance use type: does not use Household members: none Pets and animals: No Sexually active: No Do you think of yourself as: straight/heterosexual Current gender identity: female What is your relationship status?: How often do you talk on the phone with friends or family?: three or more times per week How often do you get together with friends or relatives?: three or more times per week How often do you attend yazidi or moravian services?: 4 or more times per year Do you belong to any clubs or organized social groups?: yes Panel score (0-1 are the most socially isolated patients): 3 What type of physical activity do you participate in: walking Duration: < 15 minutes/day Frequency: daily Elizabeth/Faith: Rastafarian Special elizabeth needs: Yes Agree to transfusion: No (No blood products) Seatbelt use: always Helmet use: No Drive intox or ride w/intox refrigerated 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 Do you feel safe at home: Yes Do you feel safe in your relationship?: Yes Exam Const General: no acute distress Orientation: alert HENMT Head: no palpable skull fracture Ears: external ears normal General nose exam: external nose normal Mouth: moist mucous membranes Eyes General: appearance normal, both eyes and all related structures Neck Neck: normal visual inspection Resp Effort & Inspection: normal respiratory effort and able to speak in complete sentences Cardio Rate: regular rate Skin General skin exam: no rashes or lesions noted Neuro General: patient alert and patient oriented x3 Extrem General: capillary refill normal Psych Mental Status: mental status grossly normal Course Vital Signs Vital signs: Vital Signs Temperature 36.3 C L 03/09/20 22:02 Pulse 61 03/09/20 22:02 Respiratory Rate 24 03/09/20 22:02 Blood Pressure 155/99 H 03/09/20 22:02 Pulse Oximetry 96 03/09/20 22:02 Temperature 36.3 C L 03/09/20 22:02 Temperature Source Skin 03/09/20 22:02 Pulse 61 03/09/20 22:02 Respiratory Rate 24 03/09/20 22:02 Blood Pressure 155/99 H 03/09/20 22:02 Blood Pressure Position Supine 03/09/20 22:02 Pulse Oximetry 96 03/09/20 22:02 Oxygen Delivery Method Room Air 03/09/20 22:02 Oxygen Flow Rate 0 03/09/20 22:02 Pain Level 9 03/09/20 22:11
--- NOTE | 2020-03-09 22:22 | DI.CT_ITS ---
EXAM: CT HEAD CERVICAL SPINE WO CLINICAL HISTORY: fall, pain. TECHNIQUE: Imaging Protocol: Axial computed tomography images with coronal and sagittal reformatted images were created and reviewed COMPARISON: CT HEAD WITHOUT CONTRAST from 12/25/2017 FINDINGS: CT Head: Ventricles and Extra axial spaces: Normal in size and morphology for the patient's age. Hemorrhage: None. Cerebral parenchyma: There are areas of decreased attenuation in the white matter consistent with sma ll vessel ischemic disease. Midline shift: None. Brainstem/Cerebellum: Normal. Calvarium: Normal. Visualized Paranasal sinuses/Mastoids: Clear. Soft Tissues: There is a right frontal scalp hematoma. CT Cervical Spine: Bones: No acute fracture or subluxation. Moderately severe degenerative changes are present throughou t the cervical spine. Soft Tissues: Unremarkable. Atherosclerosis. Lung Apices: Clear. IMPRESSION: 1. No acute intracranial process. 2. There is a right frontal scalp hematoma. 3. No acute fracture or subluxation in the cervical spine. RADIATION DOSE DELIVERED: Total DLP DATA REPOSITORY: All CT scans at this facility are submitted to the National Radiology Data Registry (NRDR) Dose Index Registry (DIR) with the [employer] (ACR). RADIATION OPTIMIZATION: All CT scans at this facility use at least one of these dose optimization te chniques: automated exposure control; mA and/or kV adjustment per patient size (includes targeted exa ms where dose is matched to clinical indication); or iterative reconstruction.
--- NOTE | 2020-03-09 22:44 | DI.RAD_ITS ---
EXAM: XR WRIST RT COMPLETE and XR hand RT complete and XR forearm RT CLINICAL HISTORY: pain s/p fall. TECHNIQUE: 2D digital imaging was performed. COMPARISON: CR RIGHT HAND COMPLETE from 03/03/2017 FINDINGS: BONES: There is a minimally displaced fracture involving the triquetrum best appreciated on the later al views of the wrist and hand. No other fracture or dislocation is identified. The elbow is normal ly aligned. There is osteopenia. 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 SOFT TISSUE: Soft tissue swelling of the wrist is noted. IMPRESSION: Minimally displaced triquetral fracture. DATA REPOSITORY: RADIATION DOSE DELIVERED:
--- NOTE | 2020-03-09 22:50 | DI.VRAD_ITS ---
PROCEDURE INFORMATION: Exam: CT Head Without Contrast Exam date and time: 03/09/2020 10:06 PM Age: 84 years old Clinical indication: Injury or trauma; Fall; Initial encounter; Blunt trauma (contusions or hematomas); Consciousness not specified; Injury date: 03/09/20 TECHNIQUE: Imaging protocol: Computed tomography of the head without contrast. Radiation optimization: All CT scans at this facility use at least one of these dose optimization techniques: automated exposure control; mA and/or kV adjustment per patient size (includes targeted exams where dose is matched to clinical indication); or iterative reconstruction. COMPARISON: CT HEAD WITHOUT CONTRAST 12/25/2017 8:58 AM FINDINGS: Brain: Minor cerebral atrophy. No intracranial hemorrhage. No large territory acute CVA. No cerebral edema. Brainstem and cerebellum are unremarkable. Ventricles: Normal. No ventriculomegaly. Bones/joints: Unremarkable. No acute fracture. Sinuses: Visualized sinuses are unremarkable. No fluid levels. Mastoid air cells: Visualized mastoid air cells are well aerated. Soft tissues: Right forehead scalp laceration. No foreign body. IMPRESSION: 1. Forehead scalp laceration. No foreign body. 2. No skull fracture. 3. No intracranial hemorrhage. PROCEDURE INFORMATION: Exam: CT Cervical Spine Without Contrast Exam date and time: 03/09/2020 10:06 PM Age: 84 years old Clinical indication: Injury or trauma; Fall; Initial encounter; Blunt trauma (contusions or hematomas); Consciousness not specified; Injury date: 03/09/20 TECHNIQUE: Imaging protocol: Computed tomography images of the cervical spine without contrast. Radiation optimization: All CT scans at this facility use at least one of these dose optimization techniques: automated exposure control; mA and/or kV adjustment per patient size (includes targeted exams where dose is matched to clinical indication); or iterative reconstruction. COMPARISON: CT HEAD WITHOUT CONTRAST 12/25/2017 8:58 AM FINDINGS: Vertebrae: No acute fracture. Normal alignment. Severe degenerative disc disease at C5-C6. Moderate degenerative disc disease at C3-C4. Multilevel degenerative facet and uncovertebral joint disease of moderate to severe nature. Discs/Spinal canal/Neural foramina: No significant disc protrusion. No severe spinal canal stenosis. No significant neural foraminal narrowing. Soft tissues: Unremarkable. Lungs: Lung apices are normal. Vasculature: Bilateral carotid artery atherosclerotic calcification. IMPRESSION: 1. Degenerative cervical spine changes. 2. No fracture or dislocation. Dictated and Authenticated by: Otoniel Pratt MD. Ordering:GADIEL Cornelius MD
--- NOTE | 2020-03-09 22:50 | DI.VRAD_ITS ---
PROCEDURE INFORMATION: Exam: XR Right Wrist Exam date and time: 03/09/2020 10:30 PM Age: 84 years old Clinical indication: Injury or trauma; Fall; Initial encounter; Blunt trauma (contusions or hematomas; Wrist; Right; Injury date: 03/09/20 TECHNIQUE: Imaging protocol: XR Right wrist. Views: 3 or more views. COMPARISON: CR RIGHT HAND COMPLETE 03/03/2017 3:49 PM FINDINGS: Bones/joints: Cortical discontinuity in the dorsal margin of the triquetrum on the lateral view which is new from 03/03/2017 suspicious for nondisplaced dorsal triquetral fracture. Distal radioulnar alignment is normal. No blastic or lytic lesions. No periostitis or osteolysis. Osteopenia. Soft tissues: No gross erosive changes. Dorsal soft tissue swelling at the wrist. No radiopaque foreign bodies. Other findings: Carpal relationships are normal. IMPRESSION: 1. Suspected nondisplaced fracture of the dorsal margin of the triquetrum. 2. Osteopenia. 3. Dorsal soft tissue swelling. Dictated and Authenticated by: Ankit Lunsford MD. Ordering:GADIEL Cornelius MD
--- NOTE | 2020-03-09 22:51 | DI.VRAD_ITS ---
PROCEDURE INFORMATION: Exam: XR Right Forearm Exam date and time: 03/09/2020 10:35 PM Age: 84 years old Clinical indication: Injury or trauma; Fall; Initial encounter; Blunt trauma (contusions or hematomas; Arm, lower; Right; Injury date: 03/09/20 TECHNIQUE: Imaging protocol: XR Right forearm. Views: 2 views. COMPARISON: No relevant prior studies available. FINDINGS: Bones/joints: Osteopenia. Proximal and distal radial ulnar alignment is normal. Elbow joint alignment is normal. No forearm fractures. No blastic or lytic lesions. No elbow joint effusion. No periostitis or osteolysis. Soft tissues: Mild dorsal soft tissue swelling at the wrist. No radiopaque foreign bodies are identified. Other findings: Carpal relationships are normal. No articular erosions. IMPRESSION: 1. No forearm fractures are identified. 2. Osteopenia. 3. Mild soft tissue swelling at the wrist. Dictated and Authenticated by: Ankit Lunsford MD. Ordering:GADIEL Cornelius MD
--- NOTE | 2020-03-09 22:53 | DI.VRAD_ITS ---
PROCEDURE INFORMATION: Exam: XR Right Hand Exam date and time: 03/09/2020 10:31 PM Age: 84 years old Clinical indication: Injury or trauma; Fall; Initial encounter; Blunt trauma (contusions or hematomas; Hand; Right; Injury date: 03/09/20 TECHNIQUE: Imaging protocol: XR Right hand. Views: 3 or more views. COMPARISON: CR RIGHT HAND COMPLETE 03/03/2017 3:49 PM FINDINGS: Bones/joints: Osteopenia. Acute fracture of the dorsal margin of the triquetrum noted demonstrating about 1 mm displacement of the dorsal cortical fragment. No other fractures. Distal radioulnar alignment is normal. No blastic or lytic lesions. No periostitis or osteolysis. There is evidence of moderate erosive osteoarthritis involving the distal phalangeal joints of the fingers and to a lesser degree the PIP joints. Soft tissues: Mild-moderate dorsal soft tissue swelling at the wrist. No radiopaque foreign bodies. Other findings: Carpal relationships are normal. IMPRESSION: 1. Acute minimally displaced fracture of the dorsal margin of the triquetrum. 2. Osteopenia. 3. Evidence of chronic erosive osteoarthritis. Dictated and Authenticated by: Ankit Lunsford MD. Ordering:GADIEL Cornelius MD
[2020-03-09] MEDS: Ibuprofen 600 MG TAB PO (23:10)
[2020-03-09 23:12] VITALS: BP 155/99; PULSE 61; RESP 24; TEMP 36.3; O2SAT 96
== END 2020-03-09 23:25 | disposition home or self-care (01) ==
PROVIDERS: Emergency Provider Emergency Medicine; PCP Family Medicine
DX: S09.90XA Unspecified injury of head, initial encounter (principal); S00.01XA Abrasion of scalp, initial encounter; S62.111A Displaced fracture of triquetrum [cuneiform] bone, right wrist, initial encounter for closed fracture; S50.11XA Contusion of right forearm, initial encounter; S60.111A Contusion of right thumb with damage to nail, initial encounter; W01.10XA Fall on same level from slipping, tripping and stumbling with subsequent striking against unspecified object, initial encounter
CPT/HCPCS: 25630; 99284; 70450; 72125; 73090; 73110; 73130; 99283; L3908

== ENCOUNTER 2020-04-09 01:17 | Outpatient (CLI) | payer MEDICARE, OTHER, SELFPAY ==
--- NOTE | 2020-04-09 07:30 | DI.US_ITS ---
APPROVED REPORT EXAM: Comprehensive 2D, Doppler, and color-flow Echocardiogram Patient Location: Out-Patient Laborer Pipelines: Valerie Schofield RDCS (AE) Indications: Pulmonary HTN, Edema, Non Rheumatic Mitral Valvle Other Information Study Quality: Good Conclusion Left Ventricle : The left ventricle is normal size. The left ventricular systolic function is normal. The left ventricular ejection fraction is within the normal range. There is normal left ventricular wall thickness. There is normal LV segmental wall motion. Diastolic function is indeterminate. LVEF i s 60-65%. Right Ventricle : The right ventricle is normal size. The right ventricular systolic function is norm al. The RVSP is 31 mmHg. Atria : The left atrium size is normal. The right atrium size is normal. Aortic Valve : Moderate aortic valve sclerosis. Aortic valve is trileaflet. There is no aortic valvul ar stenosis. Trace aortic regurgitation. Mitral Valve : Severe mitral annular calcification. No evidence of mitral valve stenosis. Moderate mi tral regurgitation. Tricuspid Valve : The tricuspid valve is normal in structure. There is no tricuspid valve stenosis. M oderate tricuspid regurgitation. Compared to study from 11/12/2018, there is no significant change. Wall motion Left Ventricle The left ventricle is normal size. The left ventricular systolic function is normal. The left ventric ular ejection fraction is within the normal range. There is normal left ventricular wall thickness. T here is normal LV segmental wall motion. Diastolic function is indeterminate. There is no ventricular septal defect visualized. LVEF is 60-65%. Right Ventricle The right ventricle is normal size. The right ventricular systolic function is normal. The RVSP is 31 mmHg. Atria The left atrium size is normal. The right atrium size is normal. The interatrial septum is intact wit h no evidence for an atrial septal defect. Aortic Valve Moderate aortic valve sclerosis. Aortic valve is trileaflet. There is no aortic valvular stenosis. Tr timo aortic regurgitation. Mitral Valve Severe mitral annular calcification. No evidence of mitral valve stenosis. Moderate mitral regurgitat ion. Tricuspid Valve The tricuspid valve is normal in structure. There is no tricuspid valve stenosis. Moderate tricuspid regurgitation. Pulmonic Valve The pulmonary valve is normal in structure. There is no pulmonic valvular stenosis. Trace pulmonic re gurgitation. Great Vessels The aortic root is normal in size. The ascending aorta is normal in size. Aortic arch is normal in ca liber. IVC is normal in size and collapses >50% with inspiration. Pericardium There is no pericardial effusion. 2D Dimensions IVSD d PLAX 0.83 cm F: 0.6-1.0 LV Vol A2C d MOD 59.4 mL LVPW d PLAX 0.82 cm F: 0.6 - 1.0 LV Vol A4C d MOD 61.9 mL LVID d PLAX 3.75 cm F: 3.8 - 5.2 LA vol/ BSA A2C s A-L 32.9 mL/m2 LVDs 2.25 cm F: 2.2 - 3.5 LA vol/ BSA A4C s A-L 29.4 mL/m2 Ao Root d 2.30 cm F: 2.7 - 3.3 LA Vol/ BSA Biplane s A-L 32.1 mL/m2 RA Area A4C 14.62 cm2 LA Area A4C s MOD 17.13 cm2 RA Vol/ BSA A4C s A-L 23.7 mL/m2 LA Area A2C s MOD 18.72 cm2 Ao Asc Diam d 2.68 cm F: 2.3 - 3.1 LV EF A4C MOD 65.2 % LV EF Teichholz 70.9 % LV EF A2C MOD 61.3 % LVEF (Pringle's) 61.41 % F: 54 - 74 LV EF Biplane MOD 61.4 % LV Volume 50.02 mL F: 46 - 106 SV 38.52 mL LV Volume Index 29.77 mL/m2 F: 29 - 61 SV Index 22.92 mL/m2 LV Vol Biplane MOD 62.7 mL FS 39.50 % M-Mode TAPSE 2.20 cm (M/F) >1.7 LV Diastology MV E' medial 0.050 (>0.07 m/s) E/A Ratio 0.5 LV E/e MED 14.55 (<14) MV E Vmax 0.73 (0.4-1.3 m/s) MV E' lateral 0.050 (>0.1 m/s) MV A Vmax 1.35 (0.4-1.3 m/s) LV E/e LAT 14.55 (<14) MV E/A Ratio 0.53 MV E/E' medial 14.56 MV E/E' lateral 14.56 Aortic Valve LVOT Area 2.66 cm2 AoV Area Vmax 1.83 cm2 LVOT Vmax 1.30 m/s AoV Area/ BSA (Vmax) 1.09 cm2/m2 LVOT Mean Heber. 0.80 m/s RENETTA Mean Heber. 1.66 cm2 LVOT Peak Grad 6.8 mmHg RENETTA Mean Heber. Index 0.99 cm2/m2 LVOT Mean Grad 3.2 mmHg LVOT VTI 0.285 m LVOT Diam s 1.80 cm AoV Vmax 1.88 m/s Velocity Ratio 0.69 AoV Mean Heber. 1.29 m/s AoV Peak Grad 14.2 mmHg LVOT SV 75.67 mL AoV Mean Grad 7.5 mmHg AoV VTI 0.382 m AoV Area VTI 1.98 cm2 AoV Area/ BSA (VTI) 1.18 cm/m2 Mitral Valve MV DT 249 (160-240 msec) MR Vmax 5.06 m/s MV PHT 72 msec MR VTI 1.846 m MV Area PHT 3.05 cm2 MR Peak Grad 102.4 mmHg MV VTI 0.406 m MR Mean Grad 74.4 mmHg MV Area VTI 1.86 (4.0-6.0 cm2) MR PISA Radius 0.53 cm MR EROA 0.12 cm2 MR Aliasing Velocity 0.35 m/s MR PISA 1.78 cm2 Pulmonary Valve PV Vmax 0.86 (0.5-1.5 m/s) RVOT Peak Gr. 2.19 mmHg PV Peak Grad 2.9 mmHg RVOT Mean Gr. 1.10 mmHg PV Mean Grad 1.3 mmHg RVOT VTI 0.145 m PV VTI 0.163 m RVOT Vmax 0.74 m/s Tricuspid Valve TR Peak Grad 27.7 mmHg TR Vmax 2.64 m/s RA Pressure 3.00 mmHg RVSP (TR) 30.8 mmHg
== END 2020-04-09 01:37 ==
PROVIDERS: PCP Family Medicine; Visit Provider Family Medicine
DX: I27.20 Pulmonary hypertension, unspecified (principal); I08.1 Rheumatic disorders of both mitral and tricuspid valves; R60.0 Localized edema
CPT/HCPCS: 93306

== ENCOUNTER 2020-04-29 08:56 | Emergency (ER) | payer MEDICARE, OTHER, SELFPAY ==
[2020-04-29 09:02] VITALS: BP 187/79; PULSE 73; RESP 16; TEMP 36.3; O2SAT 96
--- NOTE | 2020-04-29 09:26 | ED.GENADUL_ITS ---
Discharge Plan Disposition Patient Disposition: HOME Condition: Stable Discharge Details Chief Complaint: Nk/Back Pain Clinical Impression: Fall (on) (from) other stairs and steps, initial encounter, Acute lumbosacral myofascial strain Primary Care Provider: Tiffani Salas ED Provider: Chika Gallardo Home Meds and New Rx's Prescriptions: No Action coenzyme Q10 100 mg capsule 200 mg PO DAILY RF: 0 PEAK thyroid support capsule PO RF: 0 cholecalciferol (vitamin D3) 125 mcg (5,000 unit) capsule 125 mcg PO DAILY RF: 0 biotin 10,000 mcg capsule PO DAILY RF: 0 diphenhydramine-acetaminophen [Tylenol PM Extra Strength] 25-500 mg tablet 1 tab PO QHS PRNRF: 0 Peak Chelation & Resveratrol 1 tab PO TID RF: 0 Telo Cell Anti Aging Science 1 tab PO DAILY RF: 0 multivitamin [Daily Vitamin] 1 EACH tablet 1 ea PO DAILY RF: 0 ibuprofen 600 MG tablet 600 mg PO Q6H PRN Qty: 100 RF: 12 Discharge Instructions Instructions: Muscle Strain (ED), Fall Prevention (ED) Additional Instructions: Follow up with primary care provider in 3-5 days. Return to ED sooner if any worsening or concerns. Increase oral fluids. Please take Tylenol or Ibuprofen with food every 4-6 hours as needed for pain and swelling. Alternate ice and heat. May take muscle relaxer as needed for muscle spasm. Return for any loss of bowel or bladder control, radiation of pain down your legs or any concerns. Referrals: Tiffani Salas MD, [place] [Primary Care Provider] - Discharge Data Discharge Date/Time-TO BE ENTERED AT DEPARTURE: 04/29/20 12:12 Medical Decision Making 85-year-old female presents to the ER with chief complaint of lower back pain and pelvis pain after a fall onto her buttocks 2 days ago. Patient states that she had a mechanical fall and tripped walking backwards into a cement wall landing on her buttocks. She reports bilateral paraspinous tenderness to her lumbar back, and bilateral hip pain. He denies any saddle anesthesia loss of bowel or bladder control numbness tingling in her legs or any other complaints. Denies loss of consciousness or hitting her head does not have any evidence of head trauma no hematoma, no scalp abrasions, no palpable depressed skull fractures. No midline C-spine or T-spine tenderness with palpation. Patient took a blood root tablet prior to arrival. Is ambulatory on it arrival. At this time lumbar and pelvis x-rays ordered, urinalysis, Tylenol and Flexeril p.o. Patient ambulates without difficulty to the bathroom. X-ray shows possible superior pelvic ramus fracture versus artifact they suggest CT to further differentiate. Discussed this with patient, verbalizes understanding. CT pelvis shows no acute fracture. Lumbar spondylosis. Grade 1 anterior listhesis of L4 and L5 due to facet hypertrophy. Moderate degenerative changes at the sacroiliac joints. No evidence of hardware complication. No acute fracture. Patient given tramadol two go to tablets prior to discharge discussed CT finding s with patient. Verbalized understanding. Patient remained hemodynamically stable throughout stay. This text was generated using [employer]ge[employer] system, please disregard any oddities of phrase or misspellings. HPI General Mode of arrival: ambulatory . Date/Time Provider Initiated Documentation: 04/29/20 09:00 . Limitations to Documentation: no limitations . Information obtained by: patient . HPI Narrative: 85-year-old female presents to the ER with chief complaint of lower back pain and pelvis pain after a fall onto her buttocks 2 days ago. Patient states that she had a mechanical fall and tripped walking backwards into a cement wall landing on her buttocks. She reports bilateral paraspinous tenderness to her lumbar back, and bilateral hip pain. He denies any saddle anesthesia loss of bowel or bladder control numbness tingling in her legs or any other complaints. Denies loss of consciousness or hitting her head does not have any evidence of head trauma no hematoma, no scalp abrasions, no palpable depressed skull fractures. No midline C-spine or T-spine tenderness with palpation. Patient took a blood root tablet prior to arrival. Is ambulatory on it arrival. Related Data Home Medications Medication Instructions Recorded Confirmed multivitamin [Daily Vitamin] 1 ea PO DAILY 07/31/14 04/29/20 ibuprofen 600 mg PO Q6H PRN #100 tab-cap 04/06/18 04/29/20 coenzyme Q10 100 mg capsule 200 mg PO DAILY cap 11/02/18 04/29/20 Peak Chelation & Resveratrol 1 tab PO TID 05/25/19 03/09/20 Telo Cell Anti Aging Science 1 tab PO DAILY 05/25/19 04/29/20 PEAK thyroid support PO 04/10/20 04/10/20 biotin 10,000 mcg capsule mcg PO DAILY cap 04/10/20 04/10/20 cholecalciferol (vitamin D3) 125 125 mcg PO DAILY 04/10/20 04/29/20 mcg (5,000 unit) capsule diphenhydramine 25 1 tab PO QHS PRN 04/10/20 04/29/20 mg-acetaminophen 500 mg tablet Previous Rx's Medication Instructions Recorded ibuprofen 600 mg PO Q6H PRN #100 tab-cap 04/06/18 Allergies Allergy/AdvReac Type Severity Reaction Status Date / Time hydrocortisone Allergy Severe Verified 04/29/20 09:05 metoprolol Allergy Severe Verified 04/29/20 09:05 simvastatin Allergy Intermediate VARIOUS Verified 04/29/20 09:05 REACTIONS atorvastatin Allergy Mild RASH Verified 04/29/20 09:05 doxycycline Allergy Mild SKIN RASH Verified 04/29/20 09:05 clopidogrel Allergy Unknown RASH Verified 04/29/20 09:05 Penicillins Allergy Unknown Verified 04/29/20 09:05 Sulfa (Sulfonamide Allergy Unknown RASH Verified 04/29/20 09:05 Antibiotics) lactose AdvReac Unknown Verified 04/29/20 09:05 levofloxacin AdvReac aching Verified 04/29/20 09:05 General Stated Complaint: Nk/Back Pain KAE: 3 Review of Systems Narrative: Constitutional: Negative for weight loss, alert and oriented, well groomed, normal body habitus, appears comfortable. HEENT: Denies trauma, headaches, blurry vision, nasal discharge, sore throat, trouble swallowing. Chest: Denies chest pain, palpitations, irregular rhythm, hypertension. Respiratory: Denies Shortness of breath, cough, hemoptysis. GI: Denies abdominal pain, nausea, vomiting, diarrhea, constipation. : Denies dysuria, hematuria, flank pain, rectal bleeding. Neuro: Denies dizziness, blurry vision, weakness, syncope, headache or facial numbness. Hematologic: Denies easy bruising, intolerance to heat or cold, hair loss. [facility] Medical History Abdominal pain (Resolved) neg H.Pylori, neg U/S (2004); elevated amylase Anemia (Resolved) 08/06/03 low in FE in 1985. Baptism; no blood products Atrophic vaginitis (Chronic 08/06/01) severe Bilateral edema of lower extremity (Chronic 04/14/17) Chest pain (Chronic 08/06/04) + MPI, LAD occl 85%--stent Chronic disease of respiratory system (Chronic) Mod. 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) Pancreatitis (Inactive) Pneumonia, organism unspecified (Resolved) requiring hospitalization Polyp of colon, hyperplastic (Resolved) 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 edema multiple U/S's for fear of DVT Wedge compression fracture of first lumbar vertebra, initial encounter for closed fracture (Chronic 04/06/18) T-12 Surgical History HIP REPAIR RIGHT HIP;ORIF History of intravascular stent placement (Resolved) 09/07/04 LAD History of intravascular stent placement (Inactive) History of open reduction and internal fixation (ORIF) procedure (Resolved) History of open reduction and internal fixation (ORIF) procedure (Inactive) Stent placement (~2004) LAD STRESS TEST (02/09/12) [facility] Family History Mother , 85 Diabetes Father , 79 Skin cancer Sister Hypertension Brother Bladder cancer Brother No problems noted. Son Alcohol abuse Depression Substance abuse Son Heart disease Daughter , 6 Heart disease Daughter No problems noted. Social History Smoking/Tobacco Use Status: Never Alcohol Intake: never Caregiver/Support person: No Household members: none Housing: apartment Communication Needs: Corrective Lenses Do you need help understanding health information?: Rarely Pets and animals: No Sexually active: No Current gender identity: female What is your relationship status?: How often do you talk on the phone with friends or family?: three or more times per week How often do you get together with friends or relatives?: three or more times per week How often do you attend denominational or buddhism services?: 4 or more times per year Do you belong to any clubs or organized social groups?: no Panel score (0-1 are the most socially isolated patients): 2 What type of physical activity do you participate in: walking Duration: 15-30 minutes/day Frequency: daily Elizabeth/Uatsdin: Adventist Special elizabeth needs: Yes (no blood) Agree to transfusion: No (No blood products) Seatbelt use: always Helmet use: No Drive intox or ride w/intox newspaper delivery driver: No Do you feel safe at home: Yes Do you feel safe in your relationship?: Yes Exam Narrative Exam Narrative: Constitutional: Alert and oriented x3. Appears stated age. Normal body habitus. Head: Normocephalic, no trauma. Eyes: Pupils PERRLA, Red reflex noted, EOM's intact. Eyelids symmetrical without lesions, discharge, or swelling. ENT: Bilateral TM's WNL, External ear normal to inspection, no mastoid TTP, swelling, or erythema, Nasal turbinates WNL, no nasal discharge. Normal dentition, Posterior pharynx WNL, no exudate. Chest: RRR, Normal S1, S2, distal pulses intact. Resp: Lungs clear to auscultation bilaterally, no wheezes, rales, or rhonchi. Musculoskeletal: Normal gait, 5/5 strength to all four extremities. No midline C, T, L-spine tenderness no crepitus or step-off palpated. Does have bilateral paraspinous tenderness with palpation to the lumbar back, no coccyx tenderness with palpation, Skin: No suspicious rashes or lesions. Capillary refill less than 2 sec. Neurologic: Cranial nerves II-XII intact. Alert and oriented x 3. DTR's intact. Hematologic/Lymphatic: No ecchymosis, no lymphadenopathy. Course Vital Signs Vital signs: Vital Signs Temperature 36.3 C L 04/29/20 09:02 Pulse 73 04/29/20 09:02 Respiratory Rate 16 04/29/20 09:02 Blood Pressure 187/79 H 04/29/20 09:02 Pulse Oximetry 96 04/29/20 09:02 Temperature 36.3 C L 04/29/20 09:02 Temperature Source Skin 04/29/20 09:02 Pulse 73 04/29/20 09:02 Respiratory Rate 16 04/29/20 09:02 Respiratory Effort Non-Labored 04/29/20 09:02 Blood Pressure 187/79 H 04/29/20 09:02 Blood Pressure Position Sitting 04/29/20 09:02 Pulse Oximetry 96 04/29/20 09:02 Oxygen Delivery Method Room Air 04/29/20 09:02 Oxygen Flow Rate 0 04/29/20 09:02 Pain Level 5 04/29/20 09:02
[2020-04-29] MEDS: Acetaminophen 325 MG TAB PO (09:30)
[2020-04-29] MEDS: Cyclobenzaprine 10 MG TAB PO (09:30)
--- NOTE | 2020-04-29 10:35 | DI.RAD_ITS ---
EXAM: XR PELVIS W OBLIQUES 3V CLINICAL HISTORY: Fall, R/O fracture TECHNIQUE: COMPARISON: CR SACRUM COCCYX from 04/05/2018 CR,XR XR LUMBAR SPINE COMPLETE from 04/29/[address] PELVIC WO from 04/29/2020 FINDINGS: Three radiographs the pelvis were obtained and show lag screws transfixing an old proximal right femo ral fracture. Questionable lucency overlying superior pubic ramus on the right, however pelvic CT wa s performed and shows no evidence of fracture at this site or elsewhere involving the bones of the pe lvis. There are marked degenerative changes of both hips. Pelvic CT showed no evidence free pelvic fluid, mass, or adenopathy. Five views of the lumbosacral spine were performed. There are marked degenerative changes involving the facet joints and vertebral endplates. There is no evidence of acute fracture or dislocation. IMPRESSION: No evidence of acute traumatic injury. 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 RADIATION DOSE DELIVERED: Total DLP
--- NOTE | 2020-04-29 10:49 | DI.VRAD_ITS ---
PROCEDURE INFORMATION: Exam: XR Pelvis Exam date and time: 04/29/2020 10:14 AM Age: 85 years old Clinical indication: Other: Fall, R/O acute fracture TECHNIQUE: Imaging protocol: XR pelvis. Views: 3 or more views. COMPARISON: CT LUMBAR SPINE SI JOINTS WO 04/05/2018 12:10 PM FINDINGS: Possible nondisplaced fracture of the right superior pubic ramus versus artifact. Multiple locking screw fixation of a previous proximal right femoral fracture. Severe degenerative changes of the right hip. Moderate degenerative changes of the left hip. Moderate degenerative changes of the sacroiliac joints. Osteitis pubis. Lumbosacral spondylosis. Partially visualized colon demonstrates retained fecal content. IMPRESSION: Possible nondisplaced fracture of the right superior pubic ramus versus artifact. If clinical concern, recommend CT of the pelvis. Dictated and Authenticated by: Ankit Guadarrama MD. Ordering:YUE Farr MD
--- NOTE | 2020-04-29 10:52 | DI.VRAD_ITS ---
PROCEDURE INFORMATION: Exam: XR Lumbosacral Spine, 4 or 5 Views Exam date and time: 04/29/2020 10:37 AM Age: 85 years old Clinical indication: Other: Fall, R/O fracture TECHNIQUE: Imaging protocol: XR of the lumbosacral spine, 4 or 5 views. COMPARISON: CT LUMBAR SPINE SI JOINTS WO 04/05/2018 12:10 PM FINDINGS: No acute fracture. There are 5 [id number] lumbar vertebral bodies. Mild anterior wedging of T12, chronic. Multilevel spondylosis of the lumbar spine. Mild disc height loss at L2-L3. Grade 1 anterolisthesis of L4 on L5 likely from facet hypertrophy. Degenerative changes of the sacroiliac joints. IMPRESSION: Mild anterior wedging of T12, chronic. Multilevel spondylosis of the lumbar spine. Mild disc height loss at L2-L3. Grade 1 anterolisthesis of L4 on L5 likely from facet hypertrophy. Dictated and Authenticated by: Ankit Guadarrama MD. Ordering:YUE Farr MD
--- NOTE | 2020-04-29 11:49 | DI.VRAD_ITS ---
PROCEDURE INFORMATION: Exam: CT Pelvis Without Contrast; Skeletal Exam date and time: 04/29/2020 11:28 AM Age: 85 years old Clinical indication: Other: R/O pelvic fracture, superior ramus TECHNIQUE: Imaging protocol: Computed tomography images of the pelvis without contrast. Exam focused on the skeletal structures. COMPARISON: CR XR PELVIS W OBLIQUES 3V 04/29/2020 10:15 AM FINDINGS: No acute fracture. Locking screw fixation of a previous proximal right femoral fracture. No evidence of hardware complication. Severe degenerative changes of the right hip. Moderate degenerative changes of the left hip. Moderate degenerative changes of the sacroiliac joints. Osteitis pubis. Lumbar spondylosis. Grade 1 anterolisthesis of L4 on L5 due to facet hypertrophy. Small right indirect fat containing inguinal hernia. IMPRESSION: No acute fracture. Lumbar spondylosis. Grade 1 anterolisthesis of L4 on L5 due to facet hypertrophy. Dictated and Authenticated by: Ankit Guadarrama MD. Ordering:YUE Farr MD
[2020-04-29 12:09] VITALS: BP 132/65; PULSE 66; RESP 16; O2SAT 96
== END 2020-04-29 12:12 | disposition home or self-care (01) ==
PROVIDERS: Emergency Provider Registered Nurse Emergency; PCP Family Medicine
DX: S39.012A Strain of muscle, fascia and tendon of lower back, initial encounter (principal); W19.XXXA Unspecified fall, initial encounter
CPT/HCPCS: 99284; 72110; 72190; 72192; 81003

== ENCOUNTER 2020-08-01 18:24 | Emergency (ER) | payer MEDICARE, OTHER, SELFPAY ==
--- NOTE | 2020-08-01 18:30 | RT.EKG_ITS ---
APPROVED REPORT Exam: Resting ECG Patient Location: E HR:66 bpm ECG Measurements Heart Rate 66 AXIS AK 164 P 75 QRSd 114 QRS -57 QT 469 T 76 QTc 490 Conclusion Sinus rhythm...normal P axis, V-rate 60- 99 Probable left atrial enlargement...P >50mS, <-0.10mV V1 Left ventricular hypertrophy...multiple LVH criteria ST elevation secondary to LVH...Multiple VCG criteria I have reviewed and interpreted ECG and agree with software generated interpretation.
[2020-08-01 18:40] VITALS: BP 216/64; PULSE 67; RESP 18; TEMP 36.2; O2SAT 95
--- NOTE | 2020-08-01 19:09 | ED.GENADUL_ITS ---
Discharge Plan Disposition Patient Disposition: HOME Condition: Stable Discharge Details Clinical Impression: BP (high blood pressure), Headache Primary Care Provider: Tiffani Salas ED Provider: Kary Guillen Home Meds and New Rx's Prescriptions: Continued coenzyme Q10 100 mg capsule 200 mg PO DAILY RF: 0 PEAK thyroid support capsule PO RF: 0 cholecalciferol (vitamin D3) 125 mcg (5,000 unit) capsule 125 mcg PO DAILY RF: 0 biotin 10,000 mcg capsule PO DAILY RF: 0 diphenhydramine-acetaminophen [Tylenol PM Extra Strength] 25-500 mg tablet 1 tab PO QHS PRNRF: 0 Peak Chelation & Resveratrol 1 tab PO TID RF: 0 Telo Cell Anti Aging Science 1 tab PO DAILY RF: 0 multivitamin [Daily Vitamin] 1 EACH tablet 1 ea PO DAILY RF: 0 ibuprofen 600 MG tablet 600 mg PO Q6H PRN Qty: 100 RF: 12 Discharge Instructions Instructions: Hypertension (ED), General Headache (ED) Additional Instructions: Your blood pressure is much improved after being here for a while today. Please check this once a day while you are, home. Please call your primary care on Thursday to schedule follow-up appointment. I would like for you to be rechecked in the next week. I am concerned about your headache as this is new for you. You have declined i maging here. I would like for you to discuss this further with your primary care at your upcoming appointment. If you develop chest pain, shortness of breath, difficulty breathing, vision changes, vomiting or other new/worsening symptoms please seek care urgently once again. Referrals: Tiffani Salas MD, [place] [Primary Care Provider] - Medical Decision Making Patient is a pleasant 85-year-old female presenting today with chief complaint of elevated blood pressure. She reports that she had a blood pressure checked by visiting nurse 1 week ago. She reports that at that time her blood pressure was noted to be elevated but they decided to hold off on any further intervention at that point. Her blood pressure was rechecked again today. And was noted to be high once again. She reports that she then continue to check it and the blood pressure continue to be high. Unable to give me a reading on what she is to finding is high. She is not on any antihypertensive medications. She has not discussed this with her primary care. She reports that she is seen by her primary care once a year. She denies any chest pain, shortness of breath, nausea. No pain in her back. No change in bowel or bladder habits. Reports that she yesterday and today she has had intermittent pressure that she describes as very mild behind her eyes centrally. States she does not typically have headaches. On exam, patient's anxious appearing. Normal neurological exam. No temporal tenderness. Normal cardiac and respiratory exam. No lower extremity edema. These headaches are new onset for her, I do feel that CT of her head would be appropriate. Will obtain baseline labs. Patient is agreement. Prior to the patient going to her CT, she began to refuse. She has been watching her blood pressure has steadily been going down since she initially came in. Again, her elevated blood pressure is likely associated with anxiety or stress. She does seem to have good insight into this. I did discuss with her that is unusual for patient of her age to develop headache and that imaging would be warranted. However, she continues to decline any imaging at this point would prefer to follow-up with her primary care as outpatient regarding her headaches. She would like to wait for her blood though. She feels that the headache is too benign to warrant imaging at this point. I did counseling director her on this and encouraged her to have this completed which she continues to decline. Labs reviewed. No leukocytosis. H&H is stable. Her creatinine is slightly elevated from her baseline but not notably so. Do not believe that the is significant enough to play into her elevated blood pressure at this point. Patient blood pressure is now 150/76. She denies discussed treatment options. At this point, has requested the seem to be anxiety driven, I counseled the patient on frequent check her blood pressure at home and when to do so. She will continue to monitor her blood pressure and discuss further with her primary care. I have asked that she call her primary care on Thursday to schedule follow- up appointment. She will follow-up within the next week. Patient I discussed return precautions. She is aware that she will return at any point before any imaging is recommended for her headaches. However questions and concerns were addressed and she is agreement this plan. HPI General Mode of arrival: ambulatory . Date/Time Provider Initiated Documentation: 08/01/20 19:08 . Limitations to Documentation: no limitations . Information obtained by: patient and RN notes reviewed . History of Present Illness 85 year old F presents to the emergency department with the chief complaint of elevated blood pressure, headache, described as mild, Quality is described as other (small amount of pressure in front of head, behind eyes), and is localized to the head. Patient reports no radiation. Patient started experiencing this day(s) (yesterday) and it has been intermittent (improving since being here). No relieving factors improve symptom(s), No exacerbating factors reported . Patient notes no other symptoms. and headaches; denies chest pain, cough, fever/chills, loss of appetite, malaise, nausea/vomiting, rash, shortness of breath, syncope and weakness. Patient did receive the following treatments prior to arrival, none Related Data Home Medications Medication Instructions Recorded Confirmed multivitamin [Daily Vitamin] 1 ea PO DAILY 07/31/14 08/01/20 ibuprofen 600 mg PO Q6H PRN #100 tab-cap 04/06/18 08/01/20 coenzyme Q10 100 mg capsule 200 mg PO DAILY cap 11/02/18 08/01/20 Peak Chelation & Resveratrol 1 tab PO TID 05/25/19 03/09/20 Telo Cell Anti Aging Science 1 tab PO DAILY 05/25/19 04/29/20 PEAK thyroid support PO 04/10/20 04/10/20 biotin 10,000 mcg capsule mcg PO DAILY cap 04/10/20 04/10/20 cholecalciferol (vitamin D3) 125 125 mcg PO DAILY 04/10/20 08/01/20 mcg (5,000 unit) capsule diphenhydramine 25 1 tab PO QHS PRN 04/10/20 08/01/20 mg-acetaminophen 500 mg tablet Previous Rx's Medication Instructions Recorded ibuprofen 600 mg PO Q6H PRN #100 tab-cap 04/06/18 Allergies Allergy/AdvReac Type Severity Reaction Status Date / Time hydrocortisone Allergy Severe Verified 08/01/20 20:11 metoprolol Allergy Severe Verified 08/01/20 20:11 simvastatin Allergy Intermediate VARIOUS Verified 08/01/20 20:11 REACTIONS atorvastatin Allergy Mild RASH Verified 08/01/20 20:11 doxycycline Allergy Mild SKIN RASH Verified 08/01/20 20:11 clopidogrel Allergy Unknown RASH Verified 08/01/20 20:11 Penicillins Allergy Unknown Verified 08/01/20 20:11 Sulfa (Sulfonamide Allergy Unknown RASH Verified 08/01/20 20:11 Antibiotics) lactose AdvReac Unknown Verified 08/01/20 20:11 levofloxacin AdvReac aching Verified 08/01/20 20:11 General Stated Complaint: GenMedical KAE: 3 Review of Systems Constitutional Constitutional: Reports as per HPI, Denies chills, Reports fatigue, Denies fever(s), Denies frequent falls, Reports headache(s), Denies snoring and Denies weakness Eyes Eyes: Reports as per HPI, Denies blurry vision, Denies change in vision and Denies photophobia ENT Ears, Nose, Mouth, and Throat: Denies vertigo, Reports headache(s) and Denies neck pain Cardiovascular Cardiovascular: Reports as per HPI, Denies chest pain, Denies lightheadedness, Denies radiating jaw, neck or arm pain, Denies dyspnea and Denies dyspnea on exertion Respiratory Respiratory: Reports as per HPI, Denies chest congestion, Denies cough, Denies dyspnea, Denies dyspnea on exertion, Denies snoring, Denies stridor and Denies wheezing Gastrointestinal Gastrointestinal: Reports as per HPI, Denies abdominal pain, Denies change in bowel habits, Denies nausea and Denies vomiting Musculoskeletal Musculoskeletal: Reports as per HPI, Denies back pain, Denies myalgias, Denies muscle cramps, Denies neck pain and Denies numbness Integumentary/Breasts Skin/Breast: Reports as per HPI and Denies rash Neurologic Neurologic: Reports as per HPI, Denies abnormal movements, Denies abnormal speech, Denies behavioral changes, Denies confusion, Denies vertigo, Denies frequent falls, Reports headache(s), Denies localized weakness, Denies numbness, Denies sensory deficit and Denies weakness Psychiatric Psychiatric: Denies behavioral changes and Denies confusion Endocrine Endocrine: Reports fatigue Allergic/Immunologic Allergic/Immunologic: Denies wheezing PFSH Medical History Abdominal pain neg H.Pylori, neg U/S (2004); elevated amylase Anemia 08/06/03 low in FE in 1985. Latter day; no blood products Atrophic vaginitis (08/06/01) severe Bilateral edema of lower extremity (04/14/17) Chest pain (08/06/04) + MPI, LAD occl 85%--stent Chronic disease of respiratory system Mod. 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 edema multiple U/S's for fear of DVT Wedge compression fracture of first lumbar vertebra, initial encounter for closed fracture (04/06/18) T-12 Surgical History HIP REPAIR RIGHT HIP;ORIF History of intravascular stent placement 09/07/04 LAD History of intravascular stent placement History of open reduction and internal fixation (ORIF) procedure History of open reduction and internal fixation (ORIF) procedure Stent placement (~2004) LAD STRESS TEST (02/09/12) [facility] Family History Mother , 85 Diabetes Father , 79 Skin cancer Sister Hypertension Brother Bladder cancer Brother No problems noted. Son Alcohol abuse Depression Substance abuse Son Heart disease Daughter , 6 Heart disease Daughter No problems noted. Social History Smoking/Tobacco Use Status: Never Smoking risk assessment performed?: Yes Alcohol Intake: never Drug use: Never Substance use type: does not use Caregiver/Support person: No Household members: none Housing: apartment Communication Needs: Corrective Lenses Do you need help understanding health information?: Rarely Pets and animals: No Sexually active: No Current gender identity: female What is your relationship status?: How often do you talk on the phone with friends or family?: three or more times per week How often do you get together with friends or relatives?: three or more times per week How often do you attend advent or samaritan services?: 4 or more times per year Do you belong to any clubs or organized social groups?: no Panel score (0-1 are the most socially isolated patients): 2 What type of physical activity do you participate in: walking Duration: 15-30 minutes/day Frequency: daily Elizabeth/Oriental Orthodox: Sabianist Special elizabeth needs: Yes (no blood) Agree to transfusion: No (No blood products) Seatbelt use: always Helmet use: No Drive intox or ride w/intox hazmat cdl driver: No Do you feel safe at home: Yes Do you feel safe in your relationship?: Yes Exam Const General: cooperative, healthy appearing, uncomfortable, no acute distress, well developed and well groomed Nutritional Appearance: average body habitus and well nourished Orientation: alert, awake and oriented x3 HENMT Head: normal to inspection, no palpable skull fracture, normocephalic, atra umatic and no temporal artery tenderness Ears: hearing grossly normal bilaterally, external ears normal and TM's normal bilaterally General nose exam: external nose normal Mouth: oral mucosae normal and moist mucous membranes Throat: posterior oropharynx normal Eyes General: appearance normal, both eyes and all related structures Alignment and Position: alignment normal Periorbital: periorbital findings normal Eyelids: eyelids normal Sclera: sclerae normal Cornea: corneas normal Pupils: PERRL EOM: EOM intact bilaterally Neck Neck: normal visual inspection, full ROM, no lymphadenopathy and no meningeal signs Resp Effort & Inspection: normal respiratory effort, able to speak in complete sentences and no respiratory distress Auscultation: clear to auscultation bilaterally, no rales, no rhonchi and no wheezes Cardio Rate: regular rate Rhythm: regular rhythm Heart Sounds: S1 normal and S2 normal GI Inspection: normal to inspection and non-distended Palpation: soft, no hepatosplenomegaly, not firm, no guarding, not rigid and nontender Percussion: normal to percussion Auscultation: normal bowel sounds Back/Spine/Pelvis Cervical Spine: normal cervical lordosis and cervical ROM normal Skin General skin exam: no rashes or lesions noted Neuro General: patient alert, patient awake and patient oriented x3 Cranial Nerves: CN's II-XI intact bilaterally Cognition: normal cognition Speech: speech normal Gait: normal gait Motor: muscle tone normal throughout, strength 5/5 throughout, no pronator drift, no movement abnormalities noted and no fasciculations Sensory Exam: no sensory deficits noted Extrem General: normal to inspection, capillary refill normal, no pedal edema and no calf tenderness Psych Appearance: grossly normal and well kempt Mental Status: mental status grossly normal Speech and Movement: speech and movement normal Course Vital Signs Vital signs: Vital Signs Temperature 36.2 C L 08/01/20 18:40 Pulse 67 08/01/20 18:40 Respiratory Rate 18 08/01/20 18:40 Blood Pressure 216/64 H 08/01/20 18:40 Pulse Oximetry 95 08/01/20 18:40 Temperature 36.2 C L 08/01/20 18:40 Pulse 67 08/01/20 18:40 Respiratory Rate 18 08/01/20 18:40 Blood Pressure 216/64 H 08/01/20 18:40 Blood Pressure Position Sitting 08/01/20 18:40 Pulse Oximetry 95 08/01/20 18:40 Oxygen Delivery Method Room Air 08/01/20 18:40 Oxygen Flow Rate 0 08/01/20 18:40 Pain Level 4 08/01/20 18:40
[2020-08-01 19:51] VITALS: RESP 20
[2020-08-01 19:55] LABS: Abs Immature Grans 0.02 10^3/uL (0.0-0.06); Absolute Basophil Count 0.03 10^3/uL (0.0-0.2); Absolute Eosinophil Count 0.15 10^3/uL (0.0-0.7); Absolute Lymphocyte Count 3.21 10^3/uL (1.2-3.4); Absolute Monocyte Count 0.71 10^3/uL (0.1-0.8); Absolute Neutrophil Count 4.27 10^3/uL (1.2-6.7); Basophils % 0.4; Eosinophils % 1.8; HCT 43.8 % (36.0-46.0); HGB 14.2 g/dL (11.2-15.7); Immature Grans % 0.2; Lymphocytes % 38.3; MCH 28.8 pg (27.0-33.0); MCHC 32.4 % (32.0-36.0); MCV 88.8 fL (80-95); MPV 11.7 fL (8.0-11.0); Monocytes % 8.5; Neutrophils % 50.8; Nucleated RBC 0 %; Platelet Count 191 10^3/uL (130-400); RBC 4.93 10^6/uL (3.93-5.22); RDW 12.6 % (11.7-14.6); RDW-SD 41.4 fL; WBC 8.39 10^3/uL (4.4-10.8)
[2020-08-01 20:01] VITALS: BP 150/76; PULSE 63; PULSE 64; RESP 21; O2SAT 96
[2020-08-01 20:02] VITALS: PULSE 63; RESP 21; O2SAT 96
[2020-08-01 20:04] LABS: Bilirubin Negative (Negative); Blood Negative (Negative); Clarity Clear (Clear); Glucose Negative (Negative); Ketones Negative (Negative); Leukocyte Esterase Trace (Negative); Nitrite Negative (Negative); Specific Gravity 1.015 (1.005-1.025); Urobilinogen 0.2 EU/dL (Up TO 0.2); pH 5.5 (5-8)
[2020-08-01 20:12] LABS: ALT 21 U/L (14-59); AST 21 U/L (15-37); Albumin 3.9 g/dL (3.4-5.0); Alkaline Phosphatase 60 U/L (46-116); Anion Gap 6.4 mmol/L (3-11); BUN 26 mg/dL (7-18); Bilirubin, Total 0.3 mg/dL (0.2-1.0); CO2 28.6 mmol/L (21.0-32.0); CREATININE 1.07 mg/dL (0.55-1.02); Calcium 9.4 mg/dL (8.5-10.1); Chloride 101 mmol/L (98-107); Estimated GFR 48.97 (mL/min/1.73m2); Glucose 108 mg/dL (74-106); Magnesium 1.8 mg/dL (1.8-2.4); Potassium 4.4 mmol/L (3.5-5.1); Sodium 136 mmol/L (136-145)
[2020-08-01 20:14] LABS: Troponin I < 0.05 ng/mL (<0.06)
[2020-08-01 20:17] VITALS: O2SAT 97
[2020-08-01 20:20] VITALS: O2SAT 96
[2020-08-01 20:22] LABS: Bacteria Rare HPF (Negative); C & S Indicated? Yes; Casts Negative LPF (Negative); Crystals Negative HPF (Negative); Epithelial Cells Few HPF (Negative); Mucus Negative (Negative); RBC 0-2 HPF (0-2)
== END 2020-08-01 20:36 | disposition home or self-care (01) ==
PROVIDERS: Emergency Provider Physician Assistant; PCP Family Medicine
DX: I10 Essential (primary) hypertension (principal); R51.9 Headache, unspecified
CPT/HCPCS: 36415; 80053; 93005; 99285; 81003; 81015; 83735; 84484; 85025; 87086; 93010

== ENCOUNTER 2020-11-21 13:55 | Emergency (ER) | payer MEDICARE, OTHER, SELFPAY ==
[2020-11-21] VITALS (47 sets, daily range): BP systolic 117–175; BP diastolic 63–87; PULSE 62–79; RESP 14–25; TEMP 36.8; O2SAT 91–99
--- NOTE | 2020-11-21 | DI.CT_ITS ---
EXAM: CT CHEST PE CTA CLINICAL HISTORY: LEFT SIDED cp, Hx of oral cancer. TECHNIQUE: Imaging Protocol: CT angiography of the chest was performed using pulmonary embolus law col. Multi planar reconstructions were performed. CONTRAST MATERIAL: Intravenous: Omnipaque 350 Contrast volume: 100 cc COMPARISON: CT CT chest PE abd pelvis w from 10/09/2018 FINDINGS: CHEST: PULMONARY ARTERIES: There are no intraluminal filling defects to suggest acute pulmonary emboli. LUNGS: There are no infiltrates nor evidence of pulmonary infarction.. There are no pleural effusions . MEDIASTINUM: There is no hilar nor mediastinal adenopathy. Visualized thyroid unremarkable. CARDIAC: Mild cardiomegaly. There is no pericardial effusion.Caliber of the thoracic aorta is within normal limits. There is no evidence of shift of the interventricular septum. PARTIALLY VISUALIZED UPPERMOST ABDOMEN: No obvious findings OSSEOUS: There is slight loss of height at superior endplate level of T12, not acute in appearance. On the lower most aspect of the field of view there is abnormal endplate findings in what is probably L2 but this is only minimally included in the field of view of this chest study. IMPRESSION: 1. No evidence of acute pulmonary emboli. No evidence of pulmonary infarction.No pleural effusions. 2. Osseous findings as above which are not completely included in the field of view of this chest arina dy. RADIATION DOSE DELIVERED: LINK-TO-SR Total DLP DATA REPOSITORY: All CT scans at this facility are submitted to the National Radiology Data Registry (NRDR) Dose Index Registry (DIR) with the [employer] ([employer]). RADIATION OPTIMIZATION: All CT scans at this facility use at least one of these dose optimization te chniques: automated exposure control; mA and/or kV adjustment per patient size (includes targeted exa ms where dose is matched to clinical indication); or iterative reconstruction.
--- NOTE | 2020-11-21 13:45 | RT.EKG_ITS ---
APPROVED REPORT Exam: Resting ECG Patient Location: E HR:74 bpm ECG Measurements Heart Rate 74 AXIS SD 188 P 57 QRSd 104 QRS -58 QT 385 T 73 QTc 426 Conclusion Sinus rhythm...normal P axis, V-rate 60- 99 Left anterior fascicular block...axis(240,-40), init forces inf Left ventricular hypertrophy...multiple voltage. criteria ST elevation, consider inferior injury...ST >0.08mV, II III aVF. No STEMI. No significant change from previous. I have reviewed and interpreted ECG and agree with software generated interpretation.
--- NOTE | 2020-11-21 14:03 | ED.GENADUL_ITS ---
Discharge Plan Disposition Patient Disposition: HOME Condition: Stable Discharge Details Clinical Impression: Constipation, Chest pain, Hyponatremia Primary Care Provider: Tiffani Salas ED Provider: Chika Gallardo Home Meds and New Rx's Prescriptions: No Action coenzyme Q10 100 mg capsule 200 mg PO DAILY RF: 0 PEAK thyroid support capsule PO RF: 0 cholecalciferol (vitamin D3) 125 mcg (5,000 unit) capsule 125 mcg PO DAILY RF: 0 biotin 10,000 mcg capsule PO DAILY RF: 0 diphenhydramine-acetaminophen [Tylenol PM Extra Strength] 25-500 mg tablet 1 tab PO QHS PRNRF: 0 Peak Chelation & Resveratrol 1 tab PO TID RF: 0 Telo Cell Anti Aging Science 1 tab PO DAILY RF: 0 valsartan 160 mg tablet 160 mg PO DAILY Qty: 90 RF: 8 acetaminophen [Tylenol Extra Strength] 500 mg tablet 500 mg PO BID PRNRF: 0 ibuprofen 600 MG tablet 600 mg PO Q6H PRN Qty: 100 RF: 12 ondansetron 4 mg tablet,disintegrating 4 mg PO Q6H PRN (Reason: nausea and vomiting) Qty: 60 RF: 0 Discharge Instructions Instructions: Chest Pain (ED), Constipation (ED), Hyponatremia (ED) Additional Instructions: Follow up with primary care provider in 3-5 days. Return to ED sooner if any worsening or concerns. Increase oral fluids. Try to increase oral intake as much as possible. Increase your sodium intake if possible. Your sodium level was slightly low today you were given some IV fluids which corrected this. You did have a bowel movement while here in department. CT was within normal limits, the cardiac work-up was also within normal limits. Referrals: Tiffani Salas MD, [place] [Primary Care Provider] - Discharge Data Discharge Date/Time-TO BE ENTERED AT DEPARTURE: 11/21/20 19:43 Medical Decision Making 84-year-old female the ER chief complaint of chest pain. She reports for the last 3 days she has had this fleeting pains which radiate down into her left side of her chest under her left breast into her diaphragm. She states they come and go and quickly resolved. Upon initial exam and arrival she is not planing of any chest pain. She does endorse nausea, no vomiting no diarrhea, denies fever or myalgias. Denies any cough or shortness of breath. She states that she had a hard time eating she states that she always feels full, decreased appetite. 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 She does have a past history of stent placement 2004, trigeminal neuralgia, thyroid nodule, she is with refuses blood transfusions, pulmonary hypertension, pancreatitis, mitral valve insufficiency, tricuspid valve regurgitation, anemia. EKG was reviewed by Dr. Cheryl Frias MD ER attending, please see her official report. Old EKG was available for review. No significant change from previous EKG in July. At this time cardiac work-up ordered including serial troponins, BNP did lower extremity swelling, plan for probable chest CT due to the patient's history of oral cancer and trouble swallowing. Differential diagnosis includes but not limited to ACS, AAA, PE however patient is not tachycardic he denies any shortness of breath, pneumothorax, esophageal rupture, is also unlikely patient has no vomiting she does complain of trouble swallowing, pneumonia, oral cancer metastases. 1536: Patient reevaluation, no complaints of chest pain being in department. IV normal saline is infusing at 250 mils an hour at this time. Discussed negative labs, is somewhat hyponatremic with a sodium of 128, chloride also slightly low at 92, glucose 111 albumin 3.3. She is resting in bed comfortably at this time. She states that she only has pain when she tries to swallow. 1603: Discussed CT results with radiologist Dr. Garcia negative chest CT. At this point we are waiting for repeat troponin at approximately 1700, will try a GI cocktail for patient symptoms. 1642: Patient up to bathroom, informed by staff sonographer that patient is complaining of increased trouble swallowing status post GI cocktail. O2 sat remains 99%, vitals are stable. Discussed numbness feeling from lidocaine, patient verbalized understanding. 1756: Patient is ambulatory to the bathroom she states that she is trying to move her bowels. She reports being constipated for the last 4 days she did take a stool softener this morning. Repeat troponin is within normal limits, repeat BMP ordered to evaluate sodium. 1802: Spoke with patients son who expresses concern because of decline and decrease in appetite over the last month, He states she has had approximately 15 pound weight loss, He states she takes a couple bites and then c/o pain and fullness. He also reports she is taking Vicodin for pain, which could be contributing to symptoms. Patient did have a bowel movement here in department states she feels better we will do a p.o. trial with solid food prior to discharge. Her sodium has increased to 130 after receiving some IV fluids. Plan is for discharge home. 1849: Patient given a soft diet she is eating soup at this time. She does state that she feels better after the BM. Patient discharged with strict return instructions and instructions to follow-up. This text was generated using Nanalysisation system, please disregard any oddities of phrase or misspellings. HPI General Date/Time Provider Initiated Documentation: 11/21/20 13:58 . Limitations to Documentation: no limitations . Information obtained by: patient, RN notes reviewed and old records reviewed . HPI Narrative: 84-year-old female the ER chief complaint of chest pain. She reports for the last 3 days she has had this fleeting pains which radiate down into her left side of her chest under her left breast into her diaphragm. She states they come and go and quickly resolved. Upon initial exam and arrival she is not planing of any chest pain. She does endorse nausea, no vomiting no diar dee dee, denies fever or myalgias. Denies any cough or shortness of breath. She states that she had a hard time eating she states that she always feels full, decreased appetite. 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 She does have a past history of stent placement 2004, trigeminal neuralgia, thyroid nodule, she is with refuses blood transfusions, pulmonary hypertension, pancreatitis, mitral valve insufficiency, tricuspid valve regurgitation, anemia. Related Data Home Medications Medication Instructions Recorded Confirmed ibuprofen 600 mg PO Q6H PRN #100 tab-cap 04/06/18 11/21/20 coenzyme Q10 100 mg capsule 200 mg PO DAILY cap 11/02/18 11/21/20 Peak Chelation & Resveratrol 1 tab PO TID 05/25/19 11/21/20 Telo Cell Anti Aging Science 1 tab PO DAILY 05/25/19 11/21/20 PEAK thyroid support PO 04/10/20 10/01/20 biotin 10,000 mcg capsule mcg PO DAILY cap 04/10/20 10/01/20 cholecalciferol (vitamin D3) 125 125 mcg PO DAILY 04/10/20 11/21/20 mcg (5,000 unit) capsule diphenhydramine 25 1 tab PO QHS PRN 04/10/20 11/21/20 mg-acetaminophen 500 mg tablet valsartan 160 mg tablet 160 mg PO DAILY #90 tab 08/06/20 11/21/20 acetaminophen 500 mg tablet 500 mg PO BID PRN tab 09/18/20 11/21/20 ondansetron 4 mg disintegrating 4 mg PO Q6H PRN #60 tab 11/15/20 11/21/20 tablet Previous Rx's Medication Instructions Recorded ibuprofen 600 mg PO Q6H PRN #100 tab-cap 04/06/18 valsartan 160 mg tablet 160 mg PO DAILY #90 tab 08/06/20 ondansetron 4 mg disintegrating 4 mg PO Q6H PRN #60 tab 11/15/20 tablet Allergies Allergy/AdvReac Type Severity Reaction Status Date / Time hydrocortisone Allergy Severe Verified 11/21/20 14:07 metoprolol Allergy Severe Verified 11/21/20 14:07 simvastatin Allergy Intermediate VARIOUS Verified 11/21/20 14:07 REACTIONS atorvastatin Allergy Mild RASH Verified 11/21/20 14:07 doxycycline Allergy Mild SKIN RASH Verified 11/21/20 14:07 clopidogrel Allergy Unknown RASH Verified 11/21/20 14:07 Penicillins Allergy Unknown Verified 11/21/20 14:07 Sulfa (Sulfonamide Allergy Unknown RASH Verified 11/21/20 14:07 Antibiotics) lactose AdvReac Unknown Verified 11/21/20 14:07 levofloxacin AdvReac aching Verified 11/21/20 14:07 General KAE: 3 Review of Systems Narrative: Constitutional: Negative for weight loss, alert and oriented, well groomed, normal body habitus, appears comfortable. HEENT: Denies trauma, headaches, blurry vision, nasal discharge, reports trouble swallowing is speaking in full sentences. Does have a history of oral cancer which she has been treated for and evaluated through [facility] oncology. Chest: Denies palpitations, irregular rhythm, reports left-sided chest pain radiating down to her left breast diaphragm, she does have a past medical history of hypertension and tricuspid and mitral valve replacement with stents placed in 2004. She reports sleeping pain which have resolved upon arrival. Respiratory: Denies Shortness of breath, cough, hemoptysis. GI: Denies abdominal pain, vomiting, diarrhea, constipation. Positive nausea. : Denies dysuria, hematuria, flank pain, rectal bleeding. Neuro: Denies dizziness, blurry vision, weakness, syncope, headache or facial numbness. Hematologic: Denies easy bruising, intolerance to heat or cold, hair loss. [facility] Medical History (Updated 11/21/20 @ 18:42 by Chika Gallardo) Abdominal pain neg H.Pylori, neg U/S (2004); elevated amylase Anemia 08/06/03 low in FE in 1985. Zoroastrianism; no blood products Atrophic vaginitis (08/06/01) severe Bilateral edema of lower extremity (04/14/17) Chest pain (08/06/04) + MPI, LAD occl 85%--stent Chronic disease of respiratory system Mod. 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 edema multiple U/S's for fear of DVT Wedge compression fracture of first lumbar vertebra, initial encounter for closed fracture (04/06/18) T-12 Surgical History HIP REPAIR RIGHT HIP;ORIF History of intravascular stent placement 09/07/04 LAD History of intravascular stent placement History of open reduction and internal fixation (ORIF) procedure History of open reduction and internal fixation (ORIF) procedure Stent placement (~2004) LAD STRESS TEST (02/09/12) [facility] Family History Mother , 85 Diabetes Father , 79 Skin cancer Sister Hypertension Brother Bladder cancer Brother No problems noted. Son Alcohol abuse Depression Substance abuse Son Heart disease Daughter , 6 Heart disease Daughter No problems noted. Social History Smoking/Tobacco Use Status: Never Smoking risk assessment performed?: Yes Alcohol Intake: never Drug use: Never Substance use type: does not use Caregiver/Support person: No Household members: none Housing: apartment Communication Needs: Corrective Lenses Do you need help understanding health information?: Rarely Pets and animals: No Sexually active: No Current gender identity: female What is your relationship status?: How often do you talk on the phone with friends or family?: three or more times per week How often do you get together with friends or relatives?: three or more times per week How often do you attend episcopal or rastafarian services?: 4 or more times per year Do you belong to any clubs or organized social groups?: no Panel score (0-1 are the most socially isolated patients): 2 What type of physical activity do you participate in: walking Duration: 15-30 minutes/day Frequency: daily Elizabeth/Mandaen: Denominational Special elizabeth needs: Yes (no blood) Agree to transfusion: No (No blood products) Seatbelt use: always Helmet use: No Drive intox or ride w/intox driver/guide: No Do you feel safe at home: Yes Do you feel safe in your relationship?: Yes Exam Narrative Exam Narrative: Constitutional: Alert and oriented x3. Appears stated age. Normal body habitus. Head: Normocephalic, no trauma. Eyes: Pupils PERRLA, Red reflex noted, EOM's intact. Eyelids symmetrical without lesions, discharge, or swelling. ENT: Bilateral TM's WNL, External ear normal to inspection, no mastoid TTP, swelling, or erythema, Nasal turbinates WNL, no nasal discharge. Normal dentition, does have previous surgical area noted to the right side of her tongue, the right upper palate also has some white lesions and appearance of recent surgical intervention. No exudate, no drainage. Uvula is midline, no stridor. Chest: RRR, Normal S1, S2, distal pulses intact. Bilateral radial pulses palpable. Chest wall is nontender with palpation. Resp: Lungs clear to auscultation bilaterally, no wheezes, rales, or rhonchi. Musculoskeletal: Normal gait, 5/5 strength to all four extremities. Does have some bilateral lower extremity edema approximately 2+ right greater than the left. Patient states that the right is usually swollen she does not swelling. Skin: No suspicious rashes. Capillary refill less than 2 sec. Neurologic: Cranial nerves II-XII intact. Alert and oriented x 3. DTR's intact. Hematologic/Lymphatic: No ecchymosis, no lymphadenopathy.
[2020-11-21 14:20] LABS: Abs Immature Grans 0.02 10^3/uL (0.0-0.06); Absolute Basophil Count 0.05 10^3/uL (0.0-0.2); Absolute Eosinophil Count 0.74 10^3/uL (0.0-0.7); Absolute Lymphocyte Count 2.49 10^3/uL (1.2-3.4); Absolute Monocyte Count 0.94 10^3/uL (0.1-0.8); Absolute Neutrophil Count 6.03 10^3/uL (1.2-6.7); Basophils % 0.5; Eosinophils % 7.2; HCT 40.2 % (36.0-46.0); HGB 13.4 g/dL (11.2-15.7); Immature Grans % 0.2; Lymphocytes % 24.2; MCH 28.8 pg (27.0-33.0); MCHC 33.3 % (32.0-36.0); MCV 86.3 fL (80-95); MPV 9.8 fL (8.0-11.0); Monocytes % 9.2; Neutrophils % 58.7; Nucleated RBC 0 %; Platelet Count 273 10^3/uL (130-400); RBC 4.66 10^6/uL (3.93-5.22); RDW 13.9 % (11.7-14.6); WBC 10.27 10^3/uL (4.4-10.8)
[2020-11-21] MEDS: Aspirin 81 MG CHEW 324 MG CH (14:26)
[2020-11-21] MEDS: Normal Saline 1,000 ML 250 ML IV (14:32)
[2020-11-21] MEDS: Ondansetron 4 MG/2 ML VIAL IVP (14:39)
[2020-11-21 14:49] LABS: ALT 18 U/L (14-59); AST 16 U/L (15-37); Albumin 3.3 g/dL (3.4-5.0); Alkaline Phosphatase 65 U/L (46-116); BUN 14 mg/dL (7-18); Bilirubin, Total 0.4 mg/dL (0.2-1.0); CREATININE 0.9 mg/dL (0.55-1.02); Calcium 9.6 mg/dL (8.5-10.1); Chloride 92 mmol/L (98-107); Glucose 111 mg/dL (74-106); Magnesium 1.8 mg/dL (1.8-2.4); Potassium 4.4 mmol/L (3.5-5.1); Sodium 128 mmol/L (136-145); Total Protein 7.3 g/dL (6.4-8.2)
[2020-11-21 14:55] LABS: NT-proBNP 249 pg/mL (<300); Troponin I < 0.05 ng/mL (<0.06)
[2020-11-21] MEDS: Omnipaque 350 MG/ML 100 ML BTL IJ (15:25)
[2020-11-21] MEDS: Normal Saline - Diluent 50 ML VIAL IV (15:27)
[2020-11-21 17:32] LABS: Troponin I < 0.05 ng/mL (<0.06)
[2020-11-21 18:17] LABS: Anion Gap 8.6 mmol/L (3-11); BUN 14 mg/dL (7-18); CO2 28.4 mmol/L (21.0-32.0); CREATININE 0.9 mg/dL (0.55-1.02); Calcium 9.2 mg/dL (8.5-10.1); Chloride 93 mmol/L (98-107); Glucose 103 mg/dL (74-106); Potassium 4.2 mmol/L (3.5-5.1); Sodium 130 mmol/L (136-145)
== END 2020-11-21 19:43 | disposition home or self-care (01) ==
PROVIDERS: Emergency Provider Registered Nurse Emergency; PCP Family Medicine
DX: R07.9 Chest pain, unspecified (principal); K59.00 Constipation, unspecified; E87.1 Hypo-osmolality and hyponatremia
CPT/HCPCS: 71275; 80048; 80053; 93005; 96374; 99285; 83735; 83880; 84484; 85025; 93010; 99283; J2405; J3490

== ENCOUNTER 2020-11-30 03:45 | Outpatient (CLI) | payer MEDICARE, SELFPAY ==
--- NOTE | 2020-11-30 07:15 | DI.RAD_ITS ---
EXAM: RF BARIUM SWALLOW CLINICAL HISTORY: dysphagia,r13.10 TECHNIQUE: COMPARISON: CR CHEST 2 VIEWS PA,LAT from 12/04/[address] CHEST PE CTA from 11/21/2020 FINDINGS: Preliminary films of the chest unremarkable with normal cardiac size and clear lungs. The preliminar y film of the neck shows normal soft tissue pattern of the tracheal laryngeal structures. Barium was ingested and showed normal mucosal appearance and motility of the esophagus. There is no evidence of an esophageal stricture. No hiatal hernia identified. Free flow ingested barium into th e stomach. IMPRESSION: Negative barium swallow. RADIATION DOSE DELIVERED: Total DLP
[2020-11-30] MEDS: Barium Sulfate 60% W/V 355 ML BTL PO (10:00)
== END 2020-11-30 04:05 ==
PROVIDERS: PCP Family Medicine; Visit Provider Family Medicine
DX: R13.10 Dysphagia, unspecified (principal); R07.9 Chest pain, unspecified
CPT/HCPCS: 74221

== ENCOUNTER 2020-12-02 12:35 | Emergency (ER) | payer MEDICARE, SELFPAY ==
[2020-12-02] VITALS (35 sets, daily range): BP systolic 114–141; BP diastolic 57–79; PULSE 58–78; RESP 14–28; TEMP 36.2; O2SAT 88–100
--- NOTE | 2020-12-02 12:30 | RT.EKG_ITS ---
APPROVED REPORT Exam: Resting ECG Patient Location: E HR:63 bpm ECG Measurements Heart Rate 63 AXIS NE 186 P 78 QRSd 108 QRS -50 QT 469 T 60 QTc 479 Conclusion Sinus rhythm...normal P axis, V-rate 60- 99 Probable left atrial enlargement...P >50mS, <-0.10mV V1 Left anterior fascicular block...axis(240,-40), init forces inf Left ventricular hypertrophy...multiple LVH criteria Lateral infarct, old...Q>40mS, flat T, V5 V6 I aVL I have reviewed and interpreted ECG and agree with software generated interpretation.
--- NOTE | 2020-12-02 12:45 | ED.GENADUL_ITS ---
Discharge Plan Disposition Patient Disposition: HOME Condition: Stable Discharge Details Clinical Impression: Pre-syncope, Constipation, Abdominal discomfort Primary Care Provider: Tiffani Salas ED Provider: Kary Guillen Home Meds and New Rx's Prescriptions: Continued coenzyme Q10 100 mg capsule 200 mg PO DAILY RF: 0 PEAK thyroid support capsule PO RF: 0 cholecalciferol (vitamin D3) 125 mcg (5,000 unit) capsule 125 mcg PO DAILY RF: 0 biotin 10,000 mcg capsule 10,000 mcg PO DAILY RF: 0 diphenhydramine-acetaminophen [Tylenol PM Extra Strength] 25-500 mg tablet 1 tab PO QHS PRNRF: 0 Peak Chelation & Resveratrol 1 tab PO TID RF: 0 Telo Cell Anti Aging Science 1 tab PO DAILY RF: 0 valsartan 160 mg tablet 160 mg PO DAILY Qty: 90 RF: 8 acetaminophen [Tylenol Extra Strength] 500 mg tablet 500 mg PO BID PRNRF: 0 chlorhexidine gluconate 0.12 % mouthwash 15 ml buccal BID PRNRF: 0 lidocaine HCl 2 % solution 1 applic mucous membrane BID PRNRF: 0 multivitamin [Daily Multi-Vitamin] Tablet 1 tab PO DAILY RF: 0 polyethylene glycol 3350 17 gram/dose powder 17 g PO BID Qty: 238 RF: 4 ondansetron 4 mg tablet,disintegrating 4 mg PO Q6H PRN (Reason: nausea and vomiting) Qty: 60 RF: 0 Changed hydrocodone-acetaminophen 5-325 mg tablet 1.5 tab PO Q4H MDD 6 PRN (Reason: pain) Qty: 35 RF: 0 Discharge Instructions Instructions: Constipation (ED), Near Syncope (ED) Additional Instructions: In regards to constipation, please encourage water intake. Please begin taking your MiraLAX once a day (instead of twice). You may need to adjust the dosing based on stool density and frequency. Your lightheadedness is likely associated with the bowel movement and constipation. Your evaluation here is otherwise without acute abnormality. As we discussed there was question of diverticulitis on your CAT scan today. However, we plan to hold off on antibiotics until you are reevaluated by Dr. Salas on Thursday. Regarding his chronic pain, Dr. Salas is advised that you begin taking 1.5 tablets of your hydrocodone that you already have at home. Referral for home health has been sent. Please keep your upcoming appointment with Dr. Salas on Thursday. If you develop any new or worsening symptoms care urgently once again. Referrals: Tiffani Salas MD, [place] [Primary Care Provider] - Discharge Data Discharge Date/Time-TO BE ENTERED AT DEPARTURE: 12/02/20 16:23 Medical Decision Making Patient is a pleasant 85-year-old female with past medical history pertinent for aphasia, constipation, trigeminal neuralgia, tricuspid regurgitation, thyroid nodules, pulmonary hypertension, primary malignant neoplasm of the mouth, hyperlipidemia, gastric motility function disorder. She is brought in via EMS after having a presyncopal episode. Patient reports she is feeling quite well this morning. States that she was ambulatory about her apartment. Pain states that she then tried to have a bowel movement during which time she became lightheaded and weak. She did not fall. No loss of consciousness. Denies any palpitations, chest pain, shortness of breath. Patient has not had symptoms like this historically. Denies any fevers or chills. No nausea or vomiting. No bowel movement today. Patient is also reporting she has some left lower quadrant pain. She states that she has been struggling with diarrhea followed by bouts of constipation. She is chronically on oxycodone to help with the discomfort she is having in her mouth with her known tumor. She was placed on MiraLAX by primary care physician recently but she states that she has not been taking this as it caused too loose of stools. Not currently taking a stool softener. Spoke with patient's son, Sai [phone]. We discussed patients presentation and concerns. He advised that she has becoming more weak at home. He believes it is associated with poor p.o. intake as she has such severe discomfort anytime she has anything p.o. He reports she may have 2 sips of water two bites of any type of soft food and has significant discomfort causing her to stop oral intake. He states that the patient did take an extra hydrocodone recently and did find that this increase in dosing significantly improved her symptoms and that she was able to increase the amount of oral intake with this. However, did not dose to do this and is currently only taking as prescribed. On exam, patient appears sad and dehydrated. Notable intraoral tumor. She is handling secretions and swallowing well. She did have a barium swallow completed 2 days ago which did not show any stricture or limitation. Lungs are clear. Normal cardiac exam. She had some left lower quadrant discomfort as we ll as area of firmness. Primarily concern for constipation. Given the presyncope, I also considered bleeding in the abdomen although she does not have any peritoneal findings. I do find bleeding less likely. She has no lower extremity edema. Good pulses. Differential regarding her presyncope include vasovagal reaction, orthostatic hypotension, intra-abdominal bleeding. She does not have history or exam findings to suggest ACS, dissection, PE. Labs reviewed. No leukocytosis. Stable H&H. No significant abnormalities on the CMP. Troponin within normal limits. TSH within normal limits. Urinalysis without findings to suggest UTI. Discussed imaging of her abdomen with the patient. She is in agreement to move forward with this. Plan for CT to evaluate left lower quadrant discomfort. FINDINGS: Heart: Very dense mitral annulus calcification. Liver: Normal. No mass. Gallbladder and bile ducts: Mild intrahepatic bile duct dilatation. Pancreas: Normal. No ductal dilation. Spleen: Normal. No splenomegaly. Adrenal glands: Normal. No mass. Kidneys and ureters: Normal. No hydronephrosis. Stomach and bowel: Soft tissue stranding the lower descending colon could be due to diverticulitis. Scattered colonic diverticuli. Residual barium in the colon causes artifact that obscures detail in the pelvis. Appendix: No evidence of appendicitis. Intraperitoneal space: Unremarkable. No free air. No significant fluid collection. Vasculature: Vascular calcifications. No aneurysm identified. Prominent veins in pelvis could be due to vascular congestion. This is difficult to evaluate due to the significant artifact. Lymph nodes: Unremarkable. No enlarged lymph nodes. Urinary bladder: Unremarkable as visualized. Reproductive: Unremarkable as visualized. 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 The bones are demineralized. Internal fixation proximal right femur across an old healed fracture. Age indeterminate compression deformities L2, and L4. Chronic compression T12. Soft tissues: Unremarkable. IMPRESSION: 1. Soft tissue stranding about the lower descending colon suspicious for diverticulitis. This area of the colon is difficult to evaluate due to barium content. 2. Residual barium in the colon causes artifact that obscures detail. 3. Prominent veins in the pelvis could be due to venous congestion. This is difficult to evaluate due to the artifact 4. Mild intrahepatic bile duct dilatation. 5. Sigmoid diverticulosis without evidence of diverticulitis. 6. Bones are demineralized and there are age indeterminate compression fractures L2 and L4 Discussed the findings with the patient. Patient I did discuss goals of care. At this time, patient did not want to move forward with any further treatment regarding her intraoral tumor. Patient would prefer hospice care with the goal of comfort. Patient does have an appointment with Dr. Salas on Thursday to discuss this further. Consulted with Dr. Salas regarding pain management. Advised that patient take 1.5 tablets of pills that she has already prescirbed at this dosing sounds are worked well for her historically. We discussed the patient having increased difficulty with p.o. intake. Plan to refer to home health. I am concerned that the patient is forgetting to take some of her medication and therefore is having increased pain and poor p.o. intake. Patient is also been having increased weakness per her report as well as her son. I feel that referral for physical therapy would also be of benefit. Patient son did offer to have the patient come in with him. At this time, the patient's goal is to be able to at home by herself but is thankful to have this option if needed. She is in agreement with referral for home health. Dr. Salas and I discussed the findings on CT with possible diverticulitis. Patient is afebrile, no white count. This is likely associated with constipation. I did discuss antibiotics versus watchful waiting with the patient. She would prefer to hold off on antibiotics at this time and discuss this further with Dr. Salas at her upcoming appointment. Patient is discharged home, her son came to pick her up. Plan is for the patient to use 1.5 tablets of hydrocodone to help with her discomfort. She has not required any further analgesia while here. She is tolerating eating pudding well. We discussed the treatment for her constipation. She did have a bowel movement while here. I did advise that she begin using the MiraLAX once again. However, I did advise that she could try it once daily dosing to help prevent recurrence of diarrhea that she has been experiencing. I encourage water intake. Referral has been sent for home health. Advise follow-up as previously scheduled with her primary care provider. All of her questions and concerns were addressed and she is in agreement this plan. Spoke with patient's son, Sai, multiple times he is in agreement with this plan as well. HPI General Mode of arrival: EMS . Date/Time Provider Initiated Documentation: 12/02/20 12:45 . Limitations to Documentation: no limitations . Information obtained by: patient, family (son), RN notes reviewed and old records reviewed . History of Present Illness 85 year old F presents to the emergency department with the chief complaint of presyncope while having BM, described as moderate, Quality is described as aching (discomfort in LLQ), and is localized to the abdomen. Patient reports no radiation. Patient started experiencing this hour(s) and it has been now resolved (lightheaded ness and presyncope sensation has resolved). No relieving factors improve symptom(s), No exacerbating factors reported . Patient notes no other symptoms.. Patient did receive the following treatments prior to arrival, none Related Data Home Medications Medication Instructions Recorded Confirmed coenzyme Q10 100 mg capsule 200 mg PO DAILY cap 11/02/18 12/02/20 Peak Chelation & Resveratrol 1 tab PO TID 05/25/19 12/02/20 Telo Cell Anti Aging Science 1 tab PO DAILY 05/25/19 12/02/20 PEAK thyroid support PO 04/10/20 10/01/20 biotin 10,000 mcg capsule 10,000 mcg PO DAILY cap 04/10/20 12/02/20 cholecalciferol (vitamin D3) 125 125 mcg PO DAILY 04/10/20 12/02/20 mcg (5,000 unit) capsule diphenhydramine 25 1 tab PO QHS PRN 04/10/20 12/02/20 mg-acetaminophen 500 mg tablet valsartan 160 mg tablet 160 mg PO DAILY #90 tab 08/06/20 12/02/20 acetaminophen 500 mg tablet 500 mg PO BID PRN tab 09/18/20 12/02/20 ondansetron 4 mg disintegrating 4 mg PO Q6H PRN #60 tab 11/15/20 12/02/20 tablet chlorhexidine gluconate 0.12 % 15 ml BUCCAL BID PRN 11/26/20 12/02/20 mouthwash lidocaine HCl 2 % mucosal solution 1 applic MUCOUS MEMBRANE BID PRN 11/26/20 12/02/20 multivitamin 1 tab PO DAILY 11/26/20 12/02/20 polyethylene glycol 3350 17 17 g PO BID #238 g 11/26/20 12/02/20 gram/dose oral powder hydrocodone-acetaminophen 1.5 tab PO Q4H PRN #35 tab MDD 6 12/02/20 12/02/20 Previous Rx's Medication Instructions Recorded valsartan 160 mg tablet 160 mg PO DAILY #90 tab 08/06/20 ondansetron 4 mg disintegrating 4 mg PO Q6H PRN #60 tab 11/15/20 tablet polyethylene glycol 3350 17 17 g PO BID #238 g 11/26/20 gram/dose oral powder hydrocodone-acetaminophen 1.5 tab PO Q4H PRN #35 tab MDD 6 12/02/20 Allergies Allergy/AdvReac Type Severity Reaction Status Date / Time hydrocortisone Allergy Severe Verified 12/02/20 12:55 metoprolol Allergy Severe Verified 12/02/20 12:55 simvastatin Allergy Intermediate VARIOUS Verified 12/02/20 12:55 REACTIONS atorvastatin Allergy Mild RASH Verified 12/02/20 12:55 doxycycline Allergy Mild SKIN RASH Verified 12/02/20 12:55 clopidogrel Allergy Unknown RASH Verified 12/02/20 12:55 Penicillins Allergy Unknown Verified 12/02/20 12:55 Sulfa (Sulfonamide Allergy Unknown RASH Verified 12/02/20 12:55 Antibiotics) lactose AdvReac Unknown Verified 12/02/20 12:55 levofloxacin AdvReac aching Verified 12/02/20 12:55 General Stated Complaint: GenMedical KAE: 3 Review of Systems Constitutional Constitutional: Reports as per HPI, Denies chills, Reports fatigue, Denies fever(s), Denies headache(s), Reports poor appetite and Reports weight loss ENT Ears, Nose, Mouth, and Throat: Denies vertigo, Reports dizziness and Denies headache(s) Cardiovascular Cardiovascular: Reports as per HPI, Denies chest pain and Denies dyspnea Respiratory Respiratory: Reports as per HPI, Denies cough and Denies dyspnea Gastrointestinal Gastrointestinal: Reports as per HPI Genitourinary Genitourinary: Reports as per HPI, Denies dysuria and Denies urinary urgency Musculoskeletal Musculoskeletal: Reports as per HPI, Denies abnormal gait and Denies back pain Integumentary/Breasts Skin/Breast: Reports as per HPI and Denies rash Neurologic Neurologic: Reports as per HPI, Denies abnormal gait, Denies vertigo, Reports dizziness, Denies headache(s) and Reports tremor(s) Endocrine Endocrine: Reports fatigue [facility] Medical History (Updated 12/02/20 @ 15:42 by SHANTE Bellamy) Abdominal pain neg H.Pylori, neg U/S (2004); elevated amylase Anemia 08/06/03 low in FE in 1985. Adventism; no blood products Atrophic vaginitis (08/06/01) severe Bilateral edema of lower extremity (04/14/17) Chest pain (08/06/04) + MPI, LAD occl 85%--stent Chronic disease of respiratory system Mod. 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 edema multiple U/S's for fear of DVT Wedge compression fracture of first lumbar vertebra, initial encounter for closed fracture (04/06/18) T-12 Surgical History HIP REPAIR RIGHT HIP;ORIF History of intravascular stent placement 09/07/04 LAD History of intravascular stent placement History of open reduction and internal fixation (ORIF) procedure History of open reduction and internal fixation (ORIF) procedure Stent placement (~2004) LAD STRESS TEST (02/09/12) [facility] Family History Mother , 85 Diabetes Father , 79 Skin cancer Sister Hypertension Brother Bladder cancer Brother No problems noted. Son Alcohol abuse Depression Substance abuse Son Heart disease Daughter , 6 Heart disease Daughter No problems noted. Social History Smoking/Tobacco Use Status: Never Smoking risk assessment performed?: Yes Alcohol Intake: never Drug use: Never Substance use type: does not use Caregiver/Support person: No Household members: none Housing: apartment Communication Needs: Corrective Lenses Do you need help understanding health information?: Rarely Pets and animals: No Sexually active: No Current gender identity: female What is your relationship status?: How often do you talk on the phone with friends or family?: three or more times per week How often do you get together with friends or relatives?: three or more times per week How often do you attend denominational or yazdanism services?: 4 or more times per year Do you belong to any clubs or organized social groups?: no Panel score (0-1 are the most socially isolated patients): 2 What type of physical activity do you participate in: walking Duration: 15-30 minutes/day Frequency: daily Elizabeth/Synagogue: Orthodoxy Special elizabeth needs: Yes (no blood) Agree to transfusion: No (No blood products) Seatbelt use: always Helmet use: No Drive intox or ride w/intox milk delivery driver: No Do you feel safe at home: Yes Do you feel safe in your relationship?: Yes Exam Const General: cooperative, comfortable, no acute distress, well developed, ill appearing chronically and No well hydrated Nutritional Appearance: average body habitus and well nourished Orientation: alert and awake [facility] Head: normal to inspection Face and sinus: normal facial exam Mouth: oropharynx abnormals (tumor visualized along right upper palate) and mucous membranes dry Throat: uvula midline and other (handling secretions well) Neck Neck: normal visual inspection, no lymphadenopathy, no meningeal signs, supple and other (handling secretions well,no pain with swallowing) Resp Effort & Inspection: normal respiratory effort, able to speak in complete sentences and no respiratory distress Auscultation: clear to auscultation bilaterally, no rales, no rhonchi and no wheezes Cardio Rate: regular rate Rhythm: regular rhythm Heart Sounds: S1 normal and S2 normal GI Inspection: normal to inspection, no edema, non-distended, no obesity, no visible herniation and no visible pulsation Palpation: soft, no hepatosplenomegaly, firm in the LLQ, no guarding, no pulsatile masses, not rigid and tender in the LLQ; with no rebound tenderness Auscultation: normal bowel sounds Skin General skin exam: no rashes or lesions noted Trauma: no lacerations or abrasions Neuro General: patient alert and patient awake Cognition: normal cognition Speech: speech normal Psych Appearance: grossly normal and well kempt Mental Status: mental status grossly normal Speech and Movement: speech and movement normal Course Vital Signs Vital signs: Vital Signs Temperature 36.2 C L 12/02/20 12:35 Pulse 59 L 12/02/20 12:35 Respiratory Rate 17 12/02/20 12:35 Blood Pressure 139/79 12/02/20 12:35 Pulse Oximetry 96 12/02/20 12:35 Temperature 36.2 C L 12/02/20 12:35 Temperature Source Skin 12/02/20 12:35 Pulse 59 L 12/02/20 12:35 Respiratory Rate 17 12/02/20 12:35 Respiratory Effort Non-Labored 12/02/20 12:40 Blood Pressure 139/79 12/02/20 12:35 Blood Pressure Position Supine 12/02/20 12:35 Pulse Oximetry 96 12/02/20 12:35 Oxygen Delivery Method Room Air 12/02/20 12:35 Oxygen Flow Rate 0 12/02/20 12:35
[2020-12-02 13:08] LABS: Abs Immature Grans 0.01 10^3/uL (0.0-0.06); Absolute Basophil Count 0.05 10^3/uL (0.0-0.2); Absolute Eosinophil Count 0.19 10^3/uL (0.0-0.7); Absolute Lymphocyte Count 2.14 10^3/uL (1.2-3.4); Absolute Monocyte Count 1.07 10^3/uL (0.1-0.8); Absolute Neutrophil Count 7.13 10^3/uL (1.2-6.7); Basophils % 0.5; Eosinophils % 1.8; HCT 39.9 % (36.0-46.0); HGB 12.8 g/dL (11.2-15.7); Immature Grans % 0.1; Lymphocytes % 20.2; MCH 28.4 pg (27.0-33.0); MCHC 32.1 % (32.0-36.0); MCV 88.7 fL (80-95); MPV 10.7 fL (8.0-11.0); Monocytes % 10.1; Neutrophils % 67.3; Nucleated RBC 0 %; Platelet Count 266 10^3/uL (130-400); RDW 14.2 % (11.7-14.6); RDW-SD 46.1 fL; WBC 10.59 10^3/uL (4.4-10.8)
[2020-12-02 13:18] LABS: Bilirubin Negative (Negative); Blood Negative (Negative); Clarity Clear (Clear); Glucose Negative (Negative); Ketones Negative (Negative); Leukocyte Esterase Negative (Negative); Nitrite Negative (Negative)
[2020-12-02 13:23] LABS: ALT 18 U/L (14-59); AST 21 U/L (15-37); Albumin 3.1 g/dL (3.4-5.0); Alkaline Phosphatase 57 U/L (46-116); Anion Gap 5.4 mmol/L (3-11); BUN 19 mg/dL (7-18); Bilirubin, Total 0.5 mg/dL (0.2-1.0); CO2 31.6 mmol/L (21.0-32.0); Calcium 9.3 mg/dL (8.5-10.1); Chloride 97 mmol/L (98-107); Estimated GFR 52.95 (mL/min/1.73m2); Glucose 130 mg/dL (74-106); Magnesium 1.8 mg/dL (1.8-2.4); Potassium 4.7 mmol/L (3.5-5.1); Sodium 134 mmol/L (136-145); Total Protein 6.8 g/dL (6.4-8.2); Troponin I < 0.05 ng/mL (<0.06)
[2020-12-02 13:30] LABS: TSH 2.45 uIU/mL (0.36-3.74)
--- NOTE | 2020-12-02 14:00 | DI.CT_ITS ---
EXAM: CT ABDOMEN PELVIS W CLINICAL HISTORY: LLQ pain. TECHNIQUE: Imaging Protocol: Axial computed tomography images with coronal and sagittal reformatted images were created and reviewed CONTRAST MATERIAL: Intravenous: Omnipaque 87cc Oral: None. However, this patient had a recent barium swallow examination which explains the presenc e of some hard oral contrast in more distal bowel. COMPARISON: CT CT CHEST PE CTA from 11/21/2020 FINDINGS: VISUALIZED LUNG BASES: No nodules nor pleural effusions evident. ABDOMEN: There is no ascites. LIVER: There are no obvious focal hepatic lesions evident. Mild dilatation of intrahepatic ducts. GALLBLADDER/BILIARY: Gallbladder is slightly distended. No obvious calculi therein. CBD is not dila romy. PANCREAS: No evidence of pancreatic mass nor dilatation of the pancreatic duct. SPLEEN: Spleen is not enlarged. No obvious intrasplenic lesions. Splenic and portal veins are paten t. ADRENALS: There are no significant adrenal masses. KIDNEYS:No cysts evident. No solid renal masses. No calculi nor hydronephrosis.. ABDOMINAL AORTA: Atherosclerotic. Upper normal diameter. LYMPH NODES:There is no retroperitineal nor paraaortic adenopathy. ABDOMINAL WALL/GI: No evidence of significant anterior abdominal wall hernia. No bowel obstruction. PELVIS: Visualize the pelvis is somewhat obscured by beam hardening artifact from the and bariu m which is present in the sigmoid. GI: Not well seen.There are sigmoid diverticuli. In addition, there is some streaking around the olive cent-left side of the colon. LYMPH NODES: There is no intrapelvic nor inguinal adenopathy. REPRODUCTIVE: Obscured by beam hardening artifact. There are prominent veins in the left side of the pelvis which may be due to venous congestion. URINARY BLADDER: Obscured by beam hardening artifact. OSSEOUS: A 3 screws across a healed right femoral neck fracture. Previous laminectomies. Compression fracture of L2 superior endplate. Also L4 and mild degenerative anterolisthesis L4 upon L5. Also compression fracture evident at the T12 level. IMPRESSION: 1. Compression fractures as described above in L2 and L4. Also T12. 2. Soft tissue streaking around the lower descending colon suspicious for inflammatory process such a s diverticulitis. Evaluation is somewhat difficult because of beam hardening artifact from barium ev ident in the colon from a recent barium swallow study. 3. Mild intrahepatic duct dilatation and the gallbladder appears slightly distended. 4. RADIATION DOSE DELIVERED: 524.52mGy.cm Total DLP DATA REPOSITORY: All CT scans at this facility are submitted to the National Radiology Data Registry (NRDR) Dose Index Registry (DIR) with the [employer] ([employer]). RADIATION OPTIMIZATION: All CT scans at this facility use at least one of these dose optimization te chniques: automated exposure control; mA and/or kV adjustment per patient size (includes targeted exa ms where dose is matched to clinical indication); or iterative reconstruction.
[2020-12-02] MEDS: Normal Saline - Diluent 50 ML VIAL IV (14:17)
[2020-12-02] MEDS: Omnipaque 350 MG/ML 100 ML BTL IJ (14:22)
--- NOTE | 2020-12-02 14:49 | DI.VRAD_ITS ---
PROCEDURE INFORMATION: Exam: CT Abdomen And Pelvis With Contrast Exam date and time: 12/02/2020 2:16 PM Age: 85 years old Clinical indication: Abdominal pain; Patient HX: Llq pain. PT had ba swallow 2 days ago TECHNIQUE: Imaging protocol: Computed tomography of the abdomen and pelvis with contrast. Radiation optimization: All CT scans at this facility use at least one of these dose optimization techniques: automated exposure control; mA and/or kV adjustment per patient size (includes targeted exams where dose is matched to clinical indication); or iterative reconstruction. Contrast material: OMNI 350; Contrast volume: 87 ml; Contrast route: INTRAVENOUS (IV); COMPARISON: CT PELVIC WO 04/29/2020 11:29 AM FINDINGS: Heart: Very dense mitral annulus calcification. Liver: Normal. No mass. Gallbladder and bile ducts: Mild intrahepatic bile duct dilatation. Pancreas: Normal. No ductal dilation. Spleen: Normal. No splenomegaly. Adrenal glands: Normal. No mass. Kidneys and ureters: Normal. No hydronephrosis. Stomach and bowel: Soft tissue stranding the lower descending colon could be due to diverticulitis. Scattered colonic diverticuli. Residual barium in the colon causes artifact that obscures detail in the pelvis. Appendix: No evidence of appendicitis. Intraperitoneal space: Unremarkable. No free air. No significant fluid collection. Vasculature: Vascular calcifications. No aneurysm identified. Prominent veins in pelvis could be due to vascular congestion. This is difficult to evaluate due to the significant artifact. Lymph nodes: Unremarkable. No enlarged lymph nodes. Urinary bladder: Unremarkable as visualized. Reproductive: Unremarkable as visualized. 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 The bones are demineralized. Internal fixation proximal right femur across an old healed fracture. Age indeterminate compression deformities L2, and L4. Chronic compression T12. Soft tissues: Unremarkable. IMPRESSION: 1. Soft tissue stranding about the lower descending colon suspicious for diverticulitis. This area of the colon is difficult to evaluate due to barium content. 2. Residual barium in the colon causes artifact that obscures detail. 3. Prominent veins in the pelvis could be due to venous congestion. This is difficult to evaluate due to the artifact 4. Mild intrahepatic bile duct dilatation. 5. Sigmoid diverticulosis without evidence of diverticulitis. 6. Bones are demineralized and there are age indeterminate compression fractures L2 and L4 Dictated and Authenticated by: Maricarmen Pineda MD. Ordering:DILAN Preston MD
--- NOTE | 2020-12-02 17:43 | NUR.NOTE ---
Referral Face to Face and ED note [facility] to get until appt with pcp 12/05/20. Copies put in Care Management box to have them f/u to be sure everything needed was faxed.Nursing Note:
== END 2020-12-02 16:23 | disposition home or self-care (01) ==
PROVIDERS: Emergency Provider Physician Assistant; PCP Family Medicine
DX: R55 Syncope and collapse (principal); K59.00 Constipation, unspecified; R10.32 Left lower quadrant pain; Z79.891 Long term (current) use of opiate analgesic
CPT/HCPCS: 36415; 51701; 80053; 93005; 99285; 74177; 81003; 83735; 84443; 84484; 85025; 93010; J3490